=== PATIENT | female | born 1945 | race Caucasian/White ===

== ENCOUNTER → 2017-01-14 | Outpatient (CLI) | payer OTHER, MEDICAID ==
[~2017-01-14] MED LIST: BACLOFEN10 MG PO; BACTRIM DS 8001 TA1 PO; CEPHALEXIN500 M1 PO; CIPRO500 MG PO; CIPROFLOXACIN500 MG PO; FEOSOL65 MG PO; FOSAMAX5 MG PO; FOSAMAX70 MG PO; HYDROCODONE BIT1 T11 PO; K-LEASE10 MEQ PO; KEFLEX500 MG PO; LASIX20 MG PO; LASIX40 MG PO; MIRALAX17 GM/PACK PO; MULTIPLE VITAMI1 TAB PO; Nystatin Ointme30 GM PO; OSTEO-BI-FLEX 21 TAB PO; VALIUM10 MG PO; VALIUM5 MG PO; VICODIN 5/500 505 MG PO; VITAMIN D-32000 UNI1 PO; Vicodin 5/500 505 MG PO
== END | disposition home or self-care (01) ==
LOC: CARD 13:57
DX: R01.1 Cardiac murmur, unspecified (principal)

== ENCOUNTER 2017-02-08 19:29 | Inpatient (IN) | payer OTHER, MEDICAID ==
[~2017-02-08] VITALS: Ht 162.5 cm; Wt 96.4 kg
--- NOTE | ~2017-02-08 | CON ---
[place], [place] REPORT OF CONSULTATION [id number] UNIT #: [id number] ROOM: 512 DOCTOR: HAYLEE RYDER MD BIRTHDATE: [birth year] DOS: 02/10/2017 HISTORY OF PRESENT ILLNESS: A 71-year-old patient who has presented with multiple medical problems, among which has been epigastric distress, which is practically worsening over the past few days, darkish stool, anemia, drop in H and H, thrombocytopenia. PAST MEDICAL HISTORY: Aortic stenosis, obesity, ambulation difficulties, hemorrhagic cystitis. PAST SURGICAL HISTORY: Hysterectomy, ventral hernia repair. SOCIAL HISTORY: Nonsmoker, nonalcohol consumer. FAMILY HISTORY: Noncontributory. ALLERGIES: No known medication allergies. MEDICATIONS: Medication list has been reviewed. She has been on ibuprofen 800 mg t.i.d., baclofen 10 mg t.i.d. REVIEW OF SYSTEMS: HEENT: Denies double vision, blurred vision. RESPIRATORY: Denies acute shortness of breath. CARDIOVASCULAR: Denies acute chest pain. DIGESTIVE SYSTEM: Black tarry stool, anemia. No hematemesis, no hematochezia. PHYSICAL EXAMINATION: VITAL SIGNS: Stable. HEENT: Head normocephalic, nontraumatic. Mouth and buccal mucosa benign. NECK: Supple, no thyromegaly, no cervical lymphadenopathy. CHEST: Symmetric anatomy, equal expansion. No wheeze, no rhonchi. HEART: Normal sinus rhythm, no gallop; however, soft systolic murmur at the sternal border. ABDOMEN: Soft. No hepato-organomegaly. Obese, bowel sounds present. EXTREMITIES: No cyanosis, no pedal edema. NEUROLOGIC: Alert, oriented to time, place and person. DATA: Labs reviewed. Records reviewed. Initial H and H of 8 and 26 with platelets of [address] scan of the abdomen and pelvis, mild acute focal pancreatitis has been reported. GFR normal. Lipase normal, amylase normal. CBC differential, H and H dropped to 7 and 23. Troponin normal. Urine culture, 50,000 bacteria. Comprehensive metabolic panel, electrolytes balanced status post normal saline challenge with elevation of sodium and chloride. Liver function tests normal. Lipase again normal. DIAGNOSES: Anemia, borderline thrombocytopenia, patient on ibuprofen by history. OTHER ADJUNCTIVE DIAGNOSES: We are going to investigate black tarry stool in [place], [place] REPORT OF CONSULTATION NAME: IRENE CARD UNIT #: [id number] ROOM: 512 DOCTOR: ALEKSEY SOLORIO,HAYLEE BIRTHDATE: [birth year] view of ibuprofen and drop in hemoglobin and hematocrit and need of transfusion all has been recognized. PLAN AND DISCUSSION: Endoscopic assessment of upper and lower tract. Latest H and H 8 and 29. Workup in progress. Thank you very much indeed for your kind referral. HAYLEE RYDER MD CM:CONSTR:REPORT OF CONSULTATION 184 02/11/17 0036 interface
--- NOTE | ~2017-02-08 | O ---
[place], [place] OPERATIVE NOTE NAME: IRENE CARD [facility] #: [id number] UNIT #: [id number] ROOM: 512 DO[facility] BIRTH[facility] [birth year] DOS: GASTRO-ENDOSCOPIC REPORT REPORT #1 HISTORY OF PRESENT ILLNESS: This is a 71-year-old patient who has presented with anemia, undergoing investigation, GI bleed, black tarry stools. PROCEDURE: Today's procedure part of investigation is colonoscopy and panendoscopy. PREMEDICATION: Versed and Diprivan. SCOPE: Olympus forward-viewing colonoscope 10L video. REPORT: After putting the patient in the left lateral position and after application of lubricant to the scope, the scope was introduced. Thereafter, under direct visualization, I advanced through the length of colon without difficulty. Base of the cecum explored, appendiceal orifice identified, ileocecal valve was defined. Diverticulosis in moderate degree throughout the length of colon was noticed. Small hemorrhoids were seen. The patient was gradually extubated. No active source of bleeding in colon noticed, however, residual blood in the colon was of concern. The patient extubated, tolerated procedure well. We are going to proceed with panendoscopy. REPORT #2 PROCEDURE: Today's procedure part of investigation is panendoscopy plus biopsy. PREMEDICATION: Versed and Diprivan. SCOPE: Olympus forward-viewing gastroscope Q10 video. REPORT: After putting the patient in the left lateral position and after application of lubricant to the scope, the scope was introduced. Thereafter, under direct visualization, I advanced through the length of esophagus without difficulty. Gastric pouch was entered. Multiple small antral erosions seen. Duodenal bulb was entered. Multiple large duodenal ulcers in duodenal bulb and second part approached. Margin of one was biopsied. Scope was gradually withdrawn from gastric pouch and the patient extubated, tolerated the procedure well. IMPRESSION: Multiple duodenal ulcers, large multiple small antral erosions. This is all secondary to ibuprofen intake. PLAN AND DISCUSSION: We will hold ibuprofen therapy, increasing Protonix 40 mg IV b.i.d. We are going to while she is an inpatient sucralfate 2 grams a.c. meals and at bedtime. Source of bleeding is upper GI tract as identified above. Supportive management otherwise. Routinely with you in office, p.r.n. visit [place], [place] OPERATIVE NOTE NAME: IRENE CARD UNIT #: [id number] ROOM: 512 DOCTOR: ALEKSEY SOLORIO,HAYLEE BIRTHDATE: [birth year] with us in GI Clinic. Thank you very much indeed. HAYLEE RYDER MD CM:OPRECORD:OPERATIVE NOTE 06 16 HAYLEE RYDER MD 02/10/172115 interface
[2017-02-08 19:40] VITALS: BP 117/63
[2017-02-08 20:24] LABS: BILIRUBIN NEGATIVE (NEGATIVE); BLOOD 2+ (NEGATIVE); CLARITY SL CLOUDY (CLEAR); COLOR YELLOW (YELLOW); GLUCOSE NEGATIVE (NEGATIVE); KETONE NEGATIVE (NEGATIVE); LEUKO ESTERASE 1+ (NEGATIVE); NITRITE NEGATIVE (NEGATIVE); UROBILINOGEN 0.2 E.U./dl (0.2-1.0)
[2017-02-08 20:28] LABS: BASO % 0.4 % (0.0-1.0); EOS # 0.2 10*3/uL (0.0-0.4); EOS % 1.9 % (1.0-4.0); HEMATOCRIT 26.6 % (37.0-47.0); HEMOGLOBIN 8.9 g/dl (12.0-16.0); LYMPH # 1.6 10*3/uL (1.3-4.4); LYMPH % 17.7 % (27.0-41.0); MEAN CELL VOLUME 96.4 fl (81.0-99.0); MEAN CORPUSCULAR HGB 32.2 pg (27.0-31.0); MEAN CORPUSCULAR HGB CONC 33.5 g/dl (33.0-37.0); MONO # 0.6 10*3/uL (0.1-1.0); MONO % 6.9 % (3.0-9.0); NEUT # 6.7 10*3/uL (2.3-7.9); NEUT % 72.6 % (47.0-73.0); PLATELET COUNT AUTOMATED 185 10*3/uL (130-400); RED BLOOD COUNT 2.76 10*6/uL (4.10-5.10); RED CELL DISTRI WIDTH 15.8 % (0-14.5); WHITE BLOOD COUNT 9.3 10*3/uL (4.8-10.8)
[2017-02-08 20:34] LABS: BACTERIA 3+; EPITHELIAL CELLS 0-2; WBC 31-40 wbc/hpf (0-5)
[2017-02-08 20:43] LABS: ALKALINE PHOSPHATASE 66 U/L (45-117); BUN 28 mg/dl (7-24); CHLORIDE 109 mmol/L (98-107); CREATININE 0.69 mg/dL (0.55-1.02); LIPASE 145 U/L (73-393); SGOT/AST 25 IU/L (3-35); SGPT/ALT 27 U/L (12-78); SODIUM 143 mmol/L (136-145); TOTAL PROTEIN 6.4 gm/dL (6.4-8.2)
[2017-02-08 20:47] VITALS: BP 108/60
[2017-02-08 21:25] VITALS: BP 124/64
--- NOTE | 2017-02-08 22:11 | NUR ---
PATIENT RATES PAIN AT 4/10 PAIN WAS 9/10 BEFORE PAIN MEDS
[2017-02-08 22:12] VITALS: BP 119/60
--- NOTE | 2017-02-08 22:22 | NUR ---
PATIENT IN GOWN TO BE ADMITTED, PATIENT WITH OPEN WOUND RIGHT BUTTOCK APROX 1.5CM X 1.5CM ROUND IN SHAPE, AREA OF BUTTOCK RED, PATIENT STATES " I'VE HAD THIS BED SORE FOR AWHILE"
--- NOTE | 2017-02-08 22:34 | NUR ---
REPORT FROM CASING FLUID TENDERDELORES HOOD
--- NOTE | 2017-02-08 22:58 | NUR ---
A 71, admitted to , under the services of DAWSON Albert DO with a diagnosis of GI BLEED. Chief complaint is ABD PAIN. Patient arrived via stretcher from ER. Monitor applied. Initial assessment completed. Vital signs taken and recorded. DAWSON ALBERT DO notified of admission to the unit. Orders received. See assessment for past medical history, medications and allergies. Patient and/or family oriented to unit. [facility] visitation policy reviewed. Clothing/patient valuable form completed. JAMEL LOWE
[2017-02-08] MEDS ORDERED: LASIX20 MG PO (23:03)
[2017-02-08] MEDS ORDERED: Motrin,Rufen800 MG PO (23:06)
--- NOTE | 2017-02-08 23:09 | NUR ---
MEDICATION LIST REVIEWED WITH PATIENT AND LIST FROM HOME. COPIED AND ON THE CHART.
[2017-02-08 23:30] VITALS: BP 115/62
[2017-02-08 23:35] VITALS: BP 115/62
[2017-02-09] VITALS (12 sets, daily range): BP systolic 92–115; BP diastolic 47–60
--- NOTE | 2017-02-09 00:02 | NUR ---
DR NORTH AWARE OF STAGE 2 PRESSURE ULCER. NO ORDERS AT THIS TIME
[2017-02-09 00:25] LABS: BASO % 0.3 % (0.0-1.0); EOS # 0.3 10*3/uL (0.0-0.4); EOS % 2.9 % (1.0-4.0); HEMATOCRIT 23.1 % (37.0-47.0); HEMOGLOBIN 7.8 g/dl (12.0-16.0); LYMPH # 1.7 10*3/uL (1.3-4.4); LYMPH % 19.1 % (27.0-41.0); MEAN CELL VOLUME 95.5 fl (81.0-99.0); MEAN CORPUSCULAR HGB 32.2 pg (27.0-31.0); MEAN CORPUSCULAR HGB CONC 33.8 g/dl (33.0-37.0); MEAN PLATELET VOLUME 8.9 fl (9.6-12.3); MONO # 0.7 10*3/uL (0.1-1.0); MONO % 7.5 % (3.0-9.0); NEUT % 69.5 % (47.0-73.0); PLATELET COUNT AUTOMATED 160 10*3/uL (130-400); RED BLOOD COUNT 2.42 10*6/uL (4.10-5.10); RED CELL DISTRI WIDTH 15.9 % (0-14.5); WHITE BLOOD COUNT 8.6 10*3/uL (4.8-10.8)
--- NOTE | 2017-02-09 00:54 | NUR ---
PATIENT MEDICATED WITH PRN MORPHINE FOR C/O ABD PAIN RATED AT 5/10 ON A 0/10 PAIN SCALE. WILL MONITOR
--- NOTE | 2017-02-09 01:08 | NUR ---
DR NORTH AWARE OF PATIENT'S HGB DROPPED TO 7.8 FROM 8.9. STATES WILL PUT AN ORDER IN TO TRASFUSE ONE UNIT OF BLOOD
--- NOTE | 2017-02-09 01:27 | NUR ---
PATIENT OXYGEN 90% ON ROOM AIR. PLACED ON 1L NC AND OXYGEN UP TO 95%. DENIES SHORTNESS OF BREATH.
--- NOTE | 2017-02-09 01:45 | NUR ---
Informed consent obtained from patient for Blood transfussion by . Patient identified by arm band. Vital signs recorded. Blood unit number verified by 2 R.N.'s. I.V. site satisfactory. Unit 1 started at a KVO rate with Normal Saline. JAMEL LOWE
--- NOTE | 2017-02-09 05:41 | NUR ---
PATIENT RESTING IN BED WITH EYES CLOSED. RESPS EASY AND REGULAR. BED IN LOWEST POSITION, CALL LIGHT IN REACH
[2017-02-09 06:18] LABS: BASO % 0.6 % (0.0-1.0); EOS # 0.3 10*3/uL (0.0-0.4); EOS % 4.6 % (1.0-4.0); HEMATOCRIT 23.7 % (37.0-47.0); LYMPH # 1.8 10*3/uL (1.3-4.4); LYMPH % 25.3 % (27.0-41.0); MEAN CELL VOLUME 96.7 fl (81.0-99.0); MEAN CORPUSCULAR HGB 32.7 pg (27.0-31.0); MEAN CORPUSCULAR HGB CONC 33.8 g/dl (33.0-37.0); MEAN PLATELET VOLUME 9.3 fl (9.6-12.3); MONO # 0.5 10*3/uL (0.1-1.0); MONO % 7.2 % (3.0-9.0); NEUT # 4.4 10*3/uL (2.3-7.9); NEUT % 61.6 % (47.0-73.0); NUCLEATED RED BLOOD CELL 0.3 % (0.0-0.0); PLATELET COUNT AUTOMATED 141 10*3/uL (130-400); RED BLOOD COUNT 2.45 10*6/uL (4.10-5.10); RED CELL DISTRI WIDTH 15.7 % (0-14.5); WHITE BLOOD COUNT 7.1 10*3/uL (4.8-10.8)
--- NOTE | 2017-02-09 06:23 | NUR ---
ATTEMPTED TO CALL DR RYDER FOR CONSULT. WENT STRAIGHT TO VOICEMAIL. WILL LET DAYTLEROY NURSE KNOW.
[2017-02-09 06:43] LABS: ALBUMIN 2.3 gm/dl (3.1-4.5); BUN 22 mg/dl (7-24); CHLORIDE 114 mmol/L (98-107); CREATININE 0.61 mg/dL (0.55-1.02); HDL CHOLESTEROL 27 mg/dl (40-60); POTASSIUM 3.7 mmol/L (3.5-5.1); SGOT/AST 20 IU/L (3-35); SGPT/ALT 22 U/L (12-78); SODIUM 146 mmol/L (136-145); TRIGLYCERIDES 75 mg/dl (<150); VLDL CHOLESTEROL 15 mg/dL (6-40)
[2017-02-09 06:49] LABS: ACT PARTIAL THROMBO TIME 23.1 SECONDS (20.8-31.5); INTERNATIONAL NORM RATIO 1.1 (2.0-3.5)
[2017-02-09 06:52] LABS: ALKALINE PHOSPHATASE 49 U/L (45-117); FREE T4 1.26 ng/dl (0.76-1.46); PHOSPHOROUS 2.6 mg/dL (2.5-4.9); TOTAL PROTEIN 5.2 gm/dL (6.4-8.2)
[2017-02-09 07:09] LABS: CHOLESTEROL < 50 mg/dL (<200); LDL CHOLESTEROL 8 mg/dL (9-159)
--- NOTE | 2017-02-09 08:26 | NUR ---
CONSULT CALLED TO DR. RYDER, ORDER TO MAKE SURE H/H IS DRAWN TOMORROW AND TO CALL HIM WITH RESULTS.
--- NOTE | 2017-02-09 10:50 | NUR ---
Shift chart check completed.
--- NOTE | 2017-02-09 13:27 | NUR ---
STAGE 2 ON BUTTOCKS DRESSING COMPLETED. KAYKAY LOWERY. PT GIVEN B12 INJECION LEFT DELTOID. PT WITHOUT NEEDS AT THIS TIME. WILL CONTINUE TO MONITOR
[2017-02-10] VITALS (9 sets, daily range): BP systolic 96–127; BP diastolic 46–72
--- NOTE | 2017-02-10 03:15 | NUR ---
PT RESTING IN BED WITH EYES CLOSED RESPS EASY AND NONLABORED WITH NO S/S OF DISRESS CALL LIGHT WITH IN REACH
[2017-02-10 06:28] LABS: BASO % 0.7 % (0.0-1.0); EOS # 0.3 10*3/uL (0.0-0.4); EOS % 5.7 % (1.0-4.0); HEMATOCRIT 24.4 % (37.0-47.0); LYMPH # 1.4 10*3/uL (1.3-4.4); LYMPH % 24.4 % (27.0-41.0); MEAN CELL VOLUME 99.2 fl (81.0-99.0); MEAN CORPUSCULAR HGB 32.5 pg (27.0-31.0); MEAN CORPUSCULAR HGB CONC 32.8 g/dl (33.0-37.0); MEAN PLATELET VOLUME 8.9 fl (9.6-12.3); MONO # 0.4 10*3/uL (0.1-1.0); MONO % 7.7 % (3.0-9.0); NEUT # 3.4 10*3/uL (2.3-7.9); NEUT % 60.6 % (47.0-73.0); PLATELET COUNT AUTOMATED 127 10*3/uL (130-400); RED BLOOD COUNT 2.46 10*6/uL (4.10-5.10); RED CELL DISTRI WIDTH 16.4 % (0-14.5); WHITE BLOOD COUNT 5.6 10*3/uL (4.8-10.8)
[2017-02-10 06:56] LABS: ALBUMIN 2.5 gm/dl (3.1-4.5); ALKALINE PHOSPHATASE 49 U/L (45-117); BUN 14 mg/dl (7-24); CHLORIDE 117 mmol/L (98-107); CREATININE 0.67 mg/dL (0.55-1.02); LIPASE 330 U/L (73-393); POTASSIUM 3.6 mmol/L (3.5-5.1); SGOT/AST 27 IU/L (3-35); SGPT/ALT 20 U/L (12-78); SODIUM 147 mmol/L (136-145); TOTAL PROTEIN 5.5 gm/dL (6.4-8.2)
--- NOTE | 2017-02-10 09:00 | NUR ---
Safety And Health Consultant in to talk to patient. Patient states lives at home with friend. There are few steps in the home. Physician: haroldo hurley [facility]acy: [facility] Home health services: none Patient's level of ADLs: MINIMAL ASSIST Patient has working utilities: all working DME: walker Follow-up physician's appointment after d/c: will be made by hosptalist nurse director upon discharge Does patient want to access PORTAL?: no Discharge plan discussed with patient, patient lives at home with friend, she states she uses a walker for ambulation, also has a wheelchair, patient states she also drives, she will be going back home when able and denies any home needs. PHANI ALDANA
--- NOTE | 2017-02-10 11:23 | NUR ---
IRENE CARD [id number] Please refer to the physician's history and physical for past medical history, comorbid conditions, and allergies. Diagnosis: GI BLEED, ANEMIA, PANCREATITIS, DUODENITIS Jose Score: 12,HIGH RISK WOUND DESCRIPTIONS: Location of the wound: left buttocks Type of wound: stage 2 Thickness: Partial Size: 0.4cm x 0.5cm x 0.1cm Tunneling: none Undermining: none Sinus Tract: none Presence of Exudate: Serous Amount: Light Color: Red Odor: None Periwound Skin Appearance: Normal Wound edges: approximated Pain (associated with wound): none at time of assessment How does patient state this happened? pt unsure how this occured Surface the patient is resting on: Position Pro SKIN PREVENTION RECOMMENDATION: 1. Pressure redistribution support surface as appropriate 2. Elevate heels 3. Remove boots/TEDS every shift and reapply 4. Head of bed 30 degrees as tolerated 5. Assess nutrition and hydration 6. Manage moisture 7. Avoid the use of containment devices while in bed 8. Use absorptive products on surfaces limit layers of linens on bed 9. Turn and reposition every 1-2 hours in bed and every 1 hour in chair as tolerated 10. Weight shifts every 15 minutes while up in chair 11. Offloading with pillows or device to keep heels elevated off bed 12. Monitor skin at least every shift 13. Inspect under medical devices twice a day WOUND TREATMENT RECOMMENDATIONS: Continue current wound care orders. Wheelchair cushion to chair when OBB.
--- NOTE | 2017-02-10 12:38 | NUR ---
Spoke with Dr. Ackerman regarding wound care recommendations.
--- NOTE | 2017-02-10 17:24 | NUR ---
PROTONIX IV HELD WHILE PATIENT GOES FOR EGD/COLO. WILL ADMINISTER UPON RETURN.
--- NOTE | 2017-02-10 17:30 | NUR ---
PT DOWN TO SURGERY FOR EGD/COLO.
--- NOTE | 2017-02-10 19:17 | NUR ---
DR RYDER CALL WITH TELEPHONE ORDERS POST EGD/COLO.
--- NOTE | 2017-02-10 19:45 | NUR ---
ASSUMED CARE OF PT AT THIS TIME, RESPS EASY AND NONLABORED WITH NO S/S OF DISTRESS CALL LIGHT WITH IN REACH, PT RETURNED FROM SURGERY IN STABLE CONDITION AT THIS TIME
--- NOTE | 2017-02-10 21:10 | NUR ---
PT REQUESTED SOMETHING TO ASSIST WITH SLEEP. REQUESTED AND ADMINSITERED PO PRN RESTORIL PER ORDERS, WILL MONITOR EFFECTS
[2017-02-11] VITALS (11 sets, daily range): BP systolic 104–132; BP diastolic 40–61
[2017-02-11 06:21] LABS: BASO % 0.7 % (0.0-1.0); EOS # 0.3 10*3/uL (0.0-0.4); EOS % 6.7 % (1.0-4.0); HEMATOCRIT 22.8 % (37.0-47.0); HEMOGLOBIN 7.4 g/dl (12.0-16.0); LYMPH # 1.2 10*3/uL (1.3-4.4); LYMPH % 25.9 % (27.0-41.0); MEAN CELL VOLUME 98.3 fl (81.0-99.0); MEAN CORPUSCULAR HGB 31.9 pg (27.0-31.0); MEAN CORPUSCULAR HGB CONC 32.5 g/dl (33.0-37.0); MEAN PLATELET VOLUME 9.1 fl (9.6-12.3); MONO # 0.3 10*3/uL (0.1-1.0); MONO % 6.9 % (3.0-9.0); NEUT # 2.7 10*3/uL (2.3-7.9); NEUT % 59.4 % (47.0-73.0); PLATELET COUNT AUTOMATED 122 10*3/uL (130-400); RED BLOOD COUNT 2.32 10*6/uL (4.10-5.10); RED CELL DISTRI WIDTH 16.5 % (0-14.5); WHITE BLOOD COUNT 4.5 10*3/uL (4.8-10.8)
--- NOTE | 2017-02-11 06:31 | NUR ---
NOTIFITED OF HGB OF 7.4, NO NEW ORDERS AT THIS TIME
--- NOTE | 2017-02-11 06:45 | NUR ---
CALL PLACED TO DR. IVEY, NOTIFIED OF URINE IN BLADDER >[address] IVEY THAT PT HAS BEEN UP AND DOWN ALL NIGHT ATTEMPTING TO VOID WITH MINIMAL OUTPUT.
[2017-02-11 06:48] LABS: ALBUMIN 2.4 gm/dl (3.1-4.5); BUN 7 mg/dl (7-24); CHLORIDE 115 mmol/L (98-107); CREATININE 0.56 mg/dL (0.55-1.02); POTASSIUM 3.1 mmol/L (3.5-5.1); SGOT/AST 27 IU/L (3-35); SGPT/ALT 20 U/L (12-78); SODIUM 146 mmol/L (136-145); TOTAL PROTEIN 5.1 gm/dL (6.4-8.2)
[2017-02-11 06:49] LABS: ALKALINE PHOSPHATASE 46 U/L (45-117)
--- NOTE | 2017-02-11 09:00 | NUR ---
case management visits with patient, patient denies any home needs
--- NOTE | 2017-02-11 19:51 | NUR ---
NOTIFIED THAT PTS TEMP WAS 100.4 AND WHEN RECHECKED 99.7, STATES TO GIVE PT TYLENOL
--- NOTE | 2017-02-11 20:00 | NUR ---
ADMISNTERED TYLENOL 650MG PO PRN PER ORDERS R/T INCREASED TEMP
--- NOTE | 2017-02-11 23:50 | NUR ---
PT RESQUESTING SLEEPING MEDICATION, ADMISNTERED RESTORIL PO PRN PER ORDERS WILL MONITOR EFFFECTS
[2017-02-12] VITALS: BP 131/56
--- NOTE | 2017-02-12 01:21 | NUR ---
PT RESTING IN BED WITH EYES CLOSED RESPS EASY AND NONLABORED WITH NO S/S OF DISTRSS CALL LIGHT WITH IN REACH
--- NOTE | 2017-02-12 04:00 | NUR ---
PT RESTING IN BED WITH EYES CLOSED RESPS EASY AND NONLABORED WITH NO S/S OF DISTRESS CALL LIGHT WITH IN REACH
[2017-02-12 06:21] LABS: BASO % 0.6 % (0.0-1.0); EOS # 0.3 10*3/uL (0.0-0.4); EOS % 7.2 % (1.0-4.0); HEMATOCRIT 25.7 % (37.0-47.0); HEMOGLOBIN 8.6 g/dl (12.0-16.0); LYMPH # 1.2 10*3/uL (1.3-4.4); LYMPH % 25.4 % (27.0-41.0); MEAN CELL VOLUME 96.3 fl (81.0-99.0); MEAN CORPUSCULAR HGB 32.2 pg (27.0-31.0); MEAN CORPUSCULAR HGB CONC 33.5 g/dl (33.0-37.0); MEAN PLATELET VOLUME 9.4 fl (9.6-12.3); MONO # 0.4 10*3/uL (0.1-1.0); MONO % 7.7 % (3.0-9.0); NEUT # 2.7 10*3/uL (2.3-7.9); PLATELET COUNT AUTOMATED 120 10*3/uL (130-400); RED BLOOD COUNT 2.67 10*6/uL (4.10-5.10); RED CELL DISTRI WIDTH 16.2 % (0-14.5); WHITE BLOOD COUNT 4.7 10*3/uL (4.8-10.8)
[2017-02-12 06:53] LABS: ALBUMIN 2.3 gm/dl (3.1-4.5); ALKALINE PHOSPHATASE 73 U/L (45-117); BUN 9 mg/dl (7-24); CHLORIDE 113 mmol/L (98-107); CREATININE 0.57 mg/dL (0.55-1.02); POTASSIUM 3.6 mmol/L (3.5-5.1); SGOT/AST 25 IU/L (3-35); SGPT/ALT 23 U/L (12-78); SODIUM 143 mmol/L (136-145); TOTAL PROTEIN 5.4 gm/dL (6.4-8.2)
[2017-02-12 08:00] VITALS: BP 126/64
[2017-02-12 12:00] VITALS: BP 120/76
[2017-02-12] MEDS ORDERED: B12,B-12,B 12500 MC1 PO (14:15)
[2017-02-12] MEDS ORDERED: Carafate1 GM/10 ML PO (14:15)
[2017-02-12] MEDS ORDERED: PROTONIX40 MG PO (14:15)
[2017-02-12 16:00] VITALS: BP 132/72
--- NOTE | 2017-02-12 17:43 | NUR ---
Discharge instructions reviewed with patient/family. Patient receptive and verbalizes understanding. Follow-up care arranged. Written instructions given to patient/family. JACQUELYN EAST
== END 2017-02-12 17:43 | disposition home or self-care (01) | DRG 377 ==
LOC: ED 19:29 → EDHOLD 22:21 → 5E 22:21
PROVIDERS: Hospitalist; Internal Medicine; Internal Medicine Gastroenterology; Nurse Practitioner Family; ADMIT Internal Medicine
PROC: 30233N1 Transfusion of Nonautologous Red Blood Cells into Peripheral Vein, Percutaneous Approach (ICD-10-PCS; 2017-02-09)
PROC: 0DB98ZX Excision of Duodenum, Via Natural or Artificial Opening Endoscopic, Diagnostic (ICD-10-PCS; principal; 2017-02-10)
PROC: 0DJD8ZZ Inspection of Lower Intestinal Tract, Via Natural or Artificial Opening Endoscopic (ICD-10-PCS; principal; 2017-02-10)
DX: K29.81 Duodenitis with bleeding (principal); K85.90 Acute pancreatitis without necrosis or infection, unspecified; E43 Unspecified severe protein-calorie malnutrition; E87.0 Hyperosmolality and hypernatremia; N39.0 Urinary tract infection, site not specified; K74.60 Unspecified cirrhosis of liver; E87.8 Other disorders of electrolyte and fluid balance, not elsewhere classified; D62 Acute posthemorrhagic anemia; I35.0 Nonrheumatic aortic (valve) stenosis; R31.9 Hematuria, unspecified; E53.8 Deficiency of other specified B group vitamins; E66.09 Other obesity due to excess calories; K25.4 Chronic or unspecified gastric ulcer with hemorrhage; K57.30 Diverticulosis of large intestine without perforation or abscess without bleeding; K26.4 Chronic or unspecified duodenal ulcer with hemorrhage; K64.9 Unspecified hemorrhoids; Z90.710 Acquired absence of both cervix and uterus; Z79.899 Other long term (current) drug therapy; Z79.1 Long term (current) use of non-steroidal anti-inflammatories (NSAID); Z68.36 Body mass index [BMI] 36.0-36.9, adult

== ENCOUNTER 2017-06-09 17:30 | Emergency (ER) | payer OTHER, MEDICAID ==
[~2017-06-09] VITALS: Ht 162.5 cm; Wt 98.0 kg
[~2017-06-09 17:30] MED LIST changes: +B12,B-12,B 12500 MC1 PO; +Carafate1 GM/10 ML PO; +Motrin,Rufen800 MG PO; +PROTONIX40 MG PO
== END 2017-06-09 18:52 | disposition home or self-care (01) ==
LOC: ED 17:30
DX: Z04.1 Encounter for examination and observation following transport accident (principal); Z79.899 Other long term (current) drug therapy; V43.52XA Car driver injured in collision with other type car in traffic accident, initial encounter; Y93.89 Activity, other specified; Y92.413 State road as the place of occurrence of the external cause; Y99.8 Other external cause status

== ENCOUNTER 2017-06-18 17:11 | Emergency (ER) | payer OTHER, MEDICAID ==
[~2017-06-18] VITALS: Ht 162.5 cm; Wt 98.0 kg
[2017-06-18] MEDS ORDERED: ZOFRAN ODT4 MG SL (19:31)
== END 2017-06-18 19:34 | disposition home or self-care (01) ==
LOC: ED 17:11
DX: S40.012A Contusion of left shoulder, initial encounter (principal); S30.1XXA Contusion of abdominal wall, initial encounter; F07.81 Postconcussional syndrome; Z90.710 Acquired absence of both cervix and uterus; Z98.890 Other specified postprocedural states; Z79.899 Other long term (current) drug therapy; V49.88XA Car occupant (driver) (passenger) injured in other specified transport accidents, initial encounter; Y93.89 Activity, other specified; Y92.413 State road as the place of occurrence of the external cause; Y99.9 Unspecified external cause status

== ENCOUNTER → 2017-11-25 | Outpatient (CLI) | payer OTHER, MEDICAID ==
[~2017-11-25] MED LIST changes: +ZOFRAN ODT4 MG SL
== END | disposition home or self-care (01) ==
LOC: MAMMO 02:49
DX: Z12.31 Encounter for screening mammogram for malignant neoplasm of breast (principal)

== ENCOUNTER → 2018-11-25 | Outpatient (CLI) | payer OTHER, MEDICAID ==
[~2018-11-25] MED LIST changes: +CARAFATE1 G1 PO; +PANTOPRAZOLE SO40 MG PO; +POTASSIUM CHLO10 MEQ PO; +SEPTDS PO; +VITAMIN B121000 MC1 PO
[2018-11-26 17:06] LABS: BILIRUBIN NEGATIVE (NEGATIVE); BLOOD 3+ (NEGATIVE); CLARITY CLOUDY (CLEAR); COLOR BROWN (YELLOW); GLUCOSE NEGATIVE (NEGATIVE); KETONE NEGATIVE (NEGATIVE); LEUKO ESTERASE 2+ (NEGATIVE); NITRITE NEGATIVE (NEGATIVE); PH 6.5 (5.0-9.0); SPECIFIC GRAVITY 1.015 (1.005-1.030); UROBILINOGEN 0.2 E.U./dl (0.2-1.0)
[2018-11-26 17:12] LABS: BACTERIA 1+; MUCOUS 1+; RBC TNTC rbc/hpf (0-2); WBC TNTC wbc/hpf (0-5)
== END | disposition home or self-care (01) ==
LOC: LAB 00:01
PROVIDERS: Urology
DX: N39.0 Urinary tract infection, site not specified (principal)

== ENCOUNTER 2019-03-01 14:50 | Inpatient (IN) | payer OTHER, MEDICAID ==
[~2019-03-01] VITALS: Ht 160 cm; Wt 106.3 kg
[2019-03-01] VITALS (9 sets, daily range): BP systolic 94–124; BP diastolic 41–64
--- NOTE | ~2019-03-01 | EKG ---
[place], [place] ELECTROCARDIOGRAM REPORT NAME: IRENE CARD UNIT #: [id number] ROOM: 528 DOCTOR: NAFISA DRAFT REPORT BIRTHDATE: [address] [facility] Test Date: 2019-03-01 Test Time: 16:30:35 Pat Name: IRENE CARD Department: Room: 528 Gender: F Supervisor Stone: : [phone] Requested By: BONITA RECIO Order Number: [id number] Reading MD: Barbara Stover Measurements Intervals [address] Rate: 97 P: 19 ME: 152 QRS: 19 QRSD: 87 T: 17 QT: 325 QTc: 413 Interpretive Statements Sinus rhythm Compared to ECG 12/21/2017 12:45:26 No significant changes Electronically Signed On 03-03-2019 9:29:03 PST by Barbaar Stover CM:EKGRPT:ELECTROCARDIOGRAM REPORT 1630 0929 BONITA RECIO EPIPHANY DRAFT REPORT BONITA RECOI
--- NOTE | ~2019-03-01 | POSTOPNOTE ---
[place], [place] POSTOPERATIVE PROGRESS NOTE NAME: IRENE CARD UNIT #: [id number] ROOM: 528 DOCTOR: HAYLEE RYDER MD BIRTHDATE: [birth year] DATE: 03/05/19 GI NOTE PREOPERATIVE DIAGNOSIS: GI BLEED, HISTORY OF DIARRHEA POSTOP LOWER GI PROC/FINDINGS: LOWER GI PROCEDURE/SURGERY: PLUS BIOPSY, COLONOSCOPY, I&D OF THROMBOSED HEMORRHOID LOWER GI FINDINGS: NONSPECIFIC COLITIS, STATUS POST BIOPSY, I&D OF THROMBOSED HEMORRHOID RECTUM X 2, DIVERTICULOSIS COLI HAYLEE RYDER MD CM:POSTOPN 14 14 HAYLEE RYDER MD 03/08/19 1518 FABIEN LOGAN.LEONARDOR
--- NOTE | ~2019-03-01 | O ---
[place], [place] OPERATIVE NOTE [facility] #[facility] [id number] UNIT #: [id number] ROOM: 528 DOCTOR: HAYLEE RYDER MD BIRTHDATE: [birth year] DOS: 03/03/2019 GASTROENDOSCOPIC REPORT INDICATION: The patient has presented 73-year-old with profound anemia, status post transfusion, diarrhea, epigastric distress. The patient's medication at the time of admission has been reviewed and no anticoagulants on board; however, she has been on baclofen and ibuprofen that was made us concerned about i.e. peptic ulcer disease and blood loss. PROCEDURE: Today's procedure part of investigation is panendoscopy. PREMEDICATION: Propofol. SCOPE: Olympus forward-viewing gastroscope Q10 video. REPORT: After putting the patient in left lateral position and application of lubricant to the scope, the scope was introduced. Thereafter, under direct visualization, advanced through the length of esophagus without difficulty. Small hiatal hernia was noticed. Gastric pouch was entered. Gastritis seen. Duodenal bulb, second and third part within normal limits. The patient extubated and tolerated the procedure well. IMPRESSION: Mild gastritis, hiatal hernia. PLAN AND DISCUSSION: Protonix 40 mg daily. We are going to organize a colonoscopic evaluation on Friday. She is going to be on regular diet tonight. Clear liquids from tomorrow and preparation, MiraLax colonic prep tomorrow to start at noon for colonoscopy on Friday. Thank you very much indeed. HAYLEE RYDER MD CM:OPRECORD:OPERATIVE NOTE 1646 2253 HAYLEE RYDER MD 03/03/19 2252 interface
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
--- NOTE | ~2019-03-01 | O ---
[place], [place] OPERATIVE NOTE [id number] UN[facility] #: [id number] ROOM: 528 DOCTOR: ALEKSEY SOLORIO,HAYLEE BIRTHDATE: [birth year] DOS: 03/05/2019 HISTORY OF PRESENT ILLNESS: A 73-year-old patient who presented with chief complaint of GI bleed, undergoing investigation, history of diarrhea. Today's procedure part of investigation is colonoscopy plus biopsy, I and D of the thrombosed hemorrhoid. PREMEDICATION: Propofol. SCOPE: Olympus forward-viewing colonoscope 10L video. REPORT: After putting the patient in left lateral position and application of lubricant to the scope, the scope was introduced. Thereafter, under direct visualization, advanced through the length of colon without difficulty. Base of the cecum explored, appendiceal site and ileocecal valve was defined nonspecific colitis, sigmoid colon noticed. Biopsy obtained. Base of cecum was photographed. Air was suctioned out. The patient was extubated, tolerated the procedure well. At this stage, the rectal pouch under sterile condition with Betadine was cleaned, injected with 2 mL of Xylocaine and hemorrhoid, I and D at two spot was done with thrombosed hemorrhoid. Clots were removed. Site was saturated with Neosporin dressed. The patient tolerated the procedure well. IMPRESSION: Nonspecific colitis, status post biopsy, I and D of thrombosed hemorrhoid rectum x 2, diverticulosis coli PLAN AND DISCUSSION: Supportive management. Regular diet. HAYLEE RYDER MD CM:OPRECORD:OPERATIVE NOTE 1121 T: HAYLEE RYDER MD 03/05/19 1219 FABIEN LOGAN MIS.R
[2019-03-01 16:17] LABS: HEMATOCRIT 23.9 % (37.0-47.0); MEAN CELL VOLUME 74.5 fl (81.0-99.0); MEAN CORPUSCULAR HGB 21.5 pg (27.0-31.0); MEAN CORPUSCULAR HGB CONC 28.9 g/dl (33.0-37.0); MEAN PLATELET VOLUME 9.7 fl (9.6-12.3); PLATELET COUNT AUTOMATED 187 10*3/uL (130-400); RED BLOOD COUNT 3.21 10*6/uL (4.10-5.10); RED CELL DISTRI WIDTH 17.8 % (0-14.5); WHITE BLOOD COUNT 4.6 10*3/uL (4.8-10.8)
[2019-03-01 16:30] LABS: HEMOGLOBIN 6.9 g/dl (12.0-16.0)
[2019-03-01 16:34] LABS: ALKALINE PHOSPHATASE 76 U/L (45-117); BUN 14 mg/dl (7-24); CHLORIDE 108 mmol/L (98-107); CREATININE 0.78 mg/dL (0.55-1.02); POTASSIUM 3.2 mmol/L (3.5-5.1); SGOT/AST 15 IU/L (3-35); SGPT/ALT 17 U/L (12-78); SODIUM 140 mmol/L (136-145); TOTAL PROTEIN 6.6 gm/dL (6.4-8.2)
[2019-03-01 16:40] LABS: ATYPICAL LYMPHS 1 % (0-0); TOTAL CELLS COUNTED 100 #CELLS
[2019-03-01 16:41] LABS: OVALOCYTES FEW; PLATELET SUFFICIENCY NORMAL (NORMAL)
--- NOTE | 2019-03-01 16:46 | NUR ---
MARY SHEPHERD AND DELORES CHONG NOTIFIED OF CRITICAL HGB OF 6.9
[2019-03-01 16:50] LABS: LIPASE 469 U/L (73-393)
[2019-03-01 16:54] LABS: TROPONIN I < 0.015 ng/ml (<0.045)
[2019-03-01 17:01] LABS: ACT PARTIAL THROMBO TIME 27.1 SECONDS (20.0-32.1)
--- NOTE | 2019-03-01 20:45 | NUR ---
Time: 2044 A 73 year old FEMALE admitted to 5E under services of TAB NAVARRO DO. Pt. arrived via stretcher from ER. Chief complaint: GI BLEED, ANEMIA, DIARRHEA, LEUKOPENIA, AND HYPOKALEMIA. GABBY ROLAND
--- NOTE | 2019-03-01 20:47 | NUR ---
PATIENT TRANSPORTED TO ROOM BY BENCH MACHINE OPERATOR. BLOOD TRANSFUSION STARTED IN ER. BLOOD TRANSFUSING AT 100 ML/HR AT TIME OF ARRIVAL TO ROOM. VITAL SIGNS TAKEN AND RECORDED. VSS. CALL LIGHT WITHIN REACH.
--- NOTE | 2019-03-01 21:00 | NUR ---
DR. ANGUIANO NOTIFIED THAT PATIENT'S MED REC IS UP TO DATE.
[2019-03-01] MEDS ORDERED: BACLOFEN5 MG PO (21:25)
[2019-03-01] MEDS ORDERED: PANTOPRAZOLE SO40 MG PO (21:29)
[2019-03-01] MEDS ORDERED: OMEPRAZOLE MAGN20 MG PO (21:30)
[2019-03-01] MEDS ORDERED: Motrin,Rufen800 MG PO (21:30)
[2019-03-01] MEDS ORDERED: LIPITOR10 MG PO (21:30)
--- NOTE | 2019-03-01 21:41 | NUR ---
NOTIFIED DR. RYDER OF NEW CONSULT. ORDERS RECEIVED TO MAKE PATIENT NPO TOMORROW NIGHT (03-02) WITH EGD FOR 03-03.
--- NOTE | 2019-03-01 21:45 | NUR ---
PATIENT'S BLOOD TRANSFUSION IS COMPLETE AT THIS TIME. NO REACTIONS NOTED. IV FLUSHED. REPEAT H/H ORDERED FOR MIDNIGHT BY DR. ANGUIANO. PATIENT WATCHING TV IN BED. CALL LIGHT WITHIN REACH.
--- NOTE | 2019-03-01 22:19 | NUR ---
Time: 2044 A 73 year old FEMALE admitted to 5E under services of TAB NAVARRO DO. Pt. arrived via stretcher from ER. Chief complaint: GI BLEED, ANEMIA, DIARRHEA, LEUKOPENIA, HYPOKALEMIA. GABBY ROLAND
[2019-03-02] VITALS (11 sets, daily range): BP systolic 104–141; BP diastolic 46–74
[2019-03-02 00:24] LABS: HEMATOCRIT 23.5 % (37.0-47.0)
[2019-03-02 00:28] LABS: HEMOGLOBIN 6.8 g/dl (12.0-16.0)
--- NOTE | 2019-03-02 00:30 | NUR ---
NOTIFIED DR. ANGUIANO OF CRITICAL H/H OF 6.8/23.5. 1 UNIT OF PRBC ORDERED TO TRANSFUSE.
--- NOTE | 2019-03-02 01:05 | NUR ---
24 HR chart check completed.
--- NOTE | 2019-03-02 01:50 | NUR ---
2ND UNIT OF PRBC WAS STARTED AT THIS TIME. VSS. NO DISTRESS NOTED. PATIENT WATCHING TV IN BED. CALL LIGHT WITHIN REACH.
--- NOTE | 2019-03-02 04:06 | NUR ---
BLOOD TRANSFUSION COMPLETE AT THIS TIME. IV SITE FLUSHED. VSS. NO DISTRESS NOTED. PATIENT STATES NO NEEDS AT THIS TIME. CALL LIGHT WITHIN REACH.
--- NOTE | 2019-03-02 05:30 | NUR ---
PATIENT MEDICATED WITH PRN NORCO FOR C/O 11/04 PAIN IN HER LEGS. WILL MONITOR FOR EFFECTIVENESS.
--- NOTE | 2019-03-02 06:20 | NUR ---
PER PATIENT PRN NORCO EFFECTIVE.
[2019-03-02 06:37] LABS: BASO % 0.5 % (0.0-1.0); EOS # 0.3 10*3/uL (0.0-0.4); EOS % 5.7 % (1.0-4.0); HEMATOCRIT 26.8 % (37.0-47.0); HEMOGLOBIN 7.8 g/dl (12.0-16.0); LYMPH % 22.6 % (27.0-41.0); MEAN CELL VOLUME 76.4 fl (81.0-99.0); MEAN CORPUSCULAR HGB 22.2 pg (27.0-31.0); MEAN CORPUSCULAR HGB CONC 29.1 g/dl (33.0-37.0); MEAN PLATELET VOLUME 9.5 fl (9.6-12.3); MONO # 0.7 10*3/uL (0.1-1.0); MONO % 14.7 % (3.0-9.0); NEUT # 2.5 10*3/uL (2.3-7.9); NEUT % 55.6 % (47.0-73.0); NUCLEATED RED BLOOD CELL 0.5 % (0.0-0.0); PLATELET COUNT AUTOMATED 167 10*3/uL (130-400); RED BLOOD COUNT 3.51 10*6/uL (4.10-5.10); RED CELL DISTRI WIDTH 18.9 % (0-14.5); WHITE BLOOD COUNT 4.4 10*3/uL (4.8-10.8)
[2019-03-02 06:51] LABS: BUN 12 mg/dl (7-24); CHLORIDE 110 mmol/L (98-107); CREATININE 0.75 mg/dL (0.55-1.02); HDL CHOLESTEROL 30 mg/dl (40-60); PHOSPHOROUS 2.5 mg/dL (2.5-4.9); POTASSIUM 3.1 mmol/L (3.5-5.1); SODIUM 142 mmol/L (136-145); TRIGLYCERIDES 56 mg/dl (<150)
[2019-03-02 06:54] LABS: CHOLESTEROL < 50 mg/dL (<200)
--- NOTE | 2019-03-02 09:15 | NUR ---
PT AWAKE. ASSESSMENT COMPLETE. ROUTINE MEDICATIONS WELL TOLERATED. BED LOW CALL BRADY IN REACH
--- NOTE | 2019-03-02 13:20 | NUR ---
Washer Cutter in to talk to patient. Patient states lives at HOME with HOGSHEAD HEAD MATCHER. There are FEW steps in the home. Physician: Ya EDWARDS Pharmacy: [facility] Home health services: NONE Patient's level of ADLs: MINIMAL ASSIST Patient has working utilities: YES DME: [employer] Follow-up physician's appointment after d/c: WILL BE MADE BY HOSPITALIST NURSE DIRECTOR ON DISCHARGE Does patient want to access PORTAL?: NO Discharge plan PT LIVES AT HOME WITH HER HOGSHEAD HEAD MATCHER. STATES SHE IS ABLE TO DO HER ADLS AND MEALS AT HOME. DENIES SHE WILL HAVE ANY NEEDS AT HOME. PLAN IS TO RETURN HOME ON DISCHARGE WHEN MEDICALLY STABLE. WILL CONTINUE TO FOLLOW. WILL HAVE A RIDE HOME PER PT.. CHRISTINE DSOUZA
--- NOTE | 2019-03-02 17:24 | NUR ---
PT C/O GENERALIZED PAIN RATED 6/10. PER HER REQUEST I ADMINISTERED PO NORCO. WILL MONITOR FOR EFFECTIVENESS
--- NOTE | 2019-03-02 18:35 | NUR ---
Patient resting quietly with no c/o discomfort. Respirations easy and regular. Vital signs stable. No overt distress. KATHLEEN BARAHONA
--- NOTE | 2019-03-02 20:11 | NUR ---
24 HR chart check completed.
--- NOTE | 2019-03-02 21:00 | NUR ---
RESTING IN BED WITH NO ACUTE DISTRESS NOTED. RESPIRATIONS EASY. LUNGS DIMINISHED, CLEAR. PULSE OX 94% RA. ABD SOFT WITH HYPERACTIVE BOWEL SOUNDS, CONTINUES TO HAVE LOOSE STOOLS. BLE DISCOLORED AND EDEMATOUS. CALL LIGHT WITHIN REACH. NO VOICED COMPLAINTS. BED ALARM MAINTAINED FOR SAFETY
[2019-03-03] VITALS (8 sets, daily range): BP systolic 98–119; BP diastolic 37–60
[2019-03-03 09:09] LABS: BASO % 0.3 % (0.0-1.0); EOS # 0.2 10*3/uL (0.0-0.4); HEMATOCRIT 26.1 % (37.0-47.0); HEMOGLOBIN 7.8 g/dl (12.0-16.0); LYMPH # 0.7 10*3/uL (1.3-4.4); LYMPH % 19.4 % (27.0-41.0); MEAN CELL VOLUME 76.1 fl (81.0-99.0); MEAN CORPUSCULAR HGB 22.7 pg (27.0-31.0); MEAN CORPUSCULAR HGB CONC 29.9 g/dl (33.0-37.0); MEAN PLATELET VOLUME 8.7 fl (9.6-12.3); MONO # 0.6 10*3/uL (0.1-1.0); MONO % 14.7 % (3.0-9.0); NEUT # 2.3 10*3/uL (2.3-7.9); PLATELET COUNT AUTOMATED 150 10*3/uL (130-400); RED BLOOD COUNT 3.43 10*6/uL (4.10-5.10); RED CELL DISTRI WIDTH 19.5 % (0-14.5); WHITE BLOOD COUNT 3.8 10*3/uL (4.8-10.8)
[2019-03-03 09:40] LABS: BUN 7 mg/dl (7-24); CHLORIDE 108 mmol/L (98-107); CREATININE 0.69 mg/dL (0.55-1.02); POTASSIUM 3.3 mmol/L (3.5-5.1); SODIUM 140 mmol/L (136-145)
--- NOTE | 2019-03-03 14:24 | NUR ---
PT FOR EGD TODAY. WILL CONTINUE TO FOLLOW FOR DISCHARGE NEEDS.
--- NOTE | 2019-03-03 15:11 | NUR ---
PATIENT TO OR BY BED FOR EGD PROCEDURE.
--- NOTE | 2019-03-03 16:20 | NUR ---
PATIENT REMAINS IN SURGERY FOR EGD PROCEDURE.
--- NOTE | 2019-03-03 17:22 | NUR ---
PATIENT RETURNED FROM EGD PROCEDURE, SEE SHIFT ASSESSMENT FOR DETAILS.
[2019-03-04] VITALS: BP 110/45
--- NOTE | 2019-03-04 00:25 | NUR ---
C-DIFF CULTURE SENT AT THIS TIME.
[2019-03-04 06:22] LABS: BASO % 0.5 % (0.0-1.0); EOS # 0.2 10*3/uL (0.0-0.4); EOS % 4.7 % (1.0-4.0); HEMATOCRIT 26.9 % (37.0-47.0); HEMOGLOBIN 7.7 g/dl (12.0-16.0); LYMPH # 0.9 10*3/uL (1.3-4.4); LYMPH % 20.3 % (27.0-41.0); MEAN CELL VOLUME 76.2 fl (81.0-99.0); MEAN CORPUSCULAR HGB 21.8 pg (27.0-31.0); MEAN CORPUSCULAR HGB CONC 28.6 g/dl (33.0-37.0); MEAN PLATELET VOLUME 9.2 fl (9.6-12.3); MONO # 0.6 10*3/uL (0.1-1.0); MONO % 12.4 % (3.0-9.0); NEUT # 2.7 10*3/uL (2.3-7.9); NEUT % 60.7 % (47.0-73.0); PLATELET COUNT AUTOMATED 164 10*3/uL (130-400); RED BLOOD COUNT 3.53 10*6/uL (4.10-5.10); RED CELL DISTRI WIDTH 19.9 % (0-14.5); WHITE BLOOD COUNT 4.4 10*3/uL (4.8-10.8)
[2019-03-04 06:27] LABS: ALBUMIN 2.5 gm/dl (3.1-4.5); ALKALINE PHOSPHATASE 73 U/L (45-117); BUN 11 mg/dl (7-24); CHLORIDE 111 mmol/L (98-107); CREATININE 0.79 mg/dL (0.55-1.02); POTASSIUM 3.5 mmol/L (3.5-5.1); SGOT/AST 20 IU/L (3-35); SGPT/ALT 14 U/L (12-78); SODIUM 142 mmol/L (136-145); TOTAL PROTEIN 5.9 gm/dL (6.4-8.2)
[2019-03-04 08:00] VITALS: BP 105/50
--- NOTE | 2019-03-04 10:32 | NUR ---
DR IVEY ROUNDED AND SEEN PT.
--- NOTE | 2019-03-04 11:03 | NUR ---
RESTING IN BED. RESPS EASY ON RA. VOICES NO NEEDS. STABLE AT THIS TIME. BED ALARM INTACT. CALL LIGHT IN REACH.
--- NOTE | 2019-03-04 11:38 | NUR ---
PT IS HAVING A COLONSCOPY TOMORROW WITH DR RYDER. STATES SHE WILL GO HOME AFTER DISCHARGE. WILL HAVE NO NEEDS. WILL CONTINUE TO FOLLOW.
[2019-03-04 12:00] VITALS: BP 109/53
[2019-03-04 16:00] VITALS: BP 106/50
--- NOTE | 2019-03-04 19:30 | NUR ---
REPORT RECEIVED ON PT AT THIS TIME. PT SITTING UP ON BEDSIDE COMMODE AT THIS TIME. PT DENIES NEEDING ANYTHING. PT UPDATED ON PLAN OF CARE FOR THE NIGHT REGARDING COLO PREP. WILL CONTINUE TO MONITOR PT. CALL LIGHT IN REACH.
[2019-03-04 20:00] VITALS: BP 119/53
[2019-03-05] VITALS: BP 114/50
--- NOTE | 2019-03-05 | NUR ---
PT SLEEPING IN BED. RESPIRATIONS EASY AND UNLABORED. NO S/S OF DISTRESS. CALL LIGHT IN REACH.
--- NOTE | 2019-03-05 05:00 | NUR ---
ENEMA GIVEN PER COLONOSCOPY PREP PROTOCOL. PT TOLERATED WELL. WILL MONITOR PT STOOL TO ENSURE THAT IT IS CLEAR.
[2019-03-05 06:20] LABS: BASO % 0.6 % (0.0-1.0); EOS # 0.3 10*3/uL (0.0-0.4); EOS % 6.2 % (1.0-4.0); HEMATOCRIT 28.3 % (37.0-47.0); HEMOGLOBIN 8.4 g/dl (12.0-16.0); LYMPH # 0.8 10*3/uL (1.3-4.4); LYMPH % 17.8 % (27.0-41.0); MEAN CELL VOLUME 76.9 fl (81.0-99.0); MEAN CORPUSCULAR HGB 22.8 pg (27.0-31.0); MEAN CORPUSCULAR HGB CONC 29.7 g/dl (33.0-37.0); MEAN PLATELET VOLUME 8.8 fl (9.6-12.3); MONO # 0.5 10*3/uL (0.1-1.0); MONO % 10.3 % (3.0-9.0); NEUT % 63.2 % (47.0-73.0); PLATELET COUNT AUTOMATED 168 10*3/uL (130-400); RED BLOOD COUNT 3.68 10*6/uL (4.10-5.10); WHITE BLOOD COUNT 4.7 10*3/uL (4.8-10.8)
[2019-03-05 06:32] LABS: BUN 8 mg/dl (7-24); CHLORIDE 110 mmol/L (98-107); CREATININE 0.78 mg/dL (0.55-1.02); POTASSIUM 3.2 mmol/L (3.5-5.1); SODIUM 142 mmol/L (136-145)
[2019-03-05 08:00] VITALS: BP 113/56
--- NOTE | 2019-03-05 09:56 | NUR ---
PT TRANSPORTED VIA BED TO OR FOR COLO WITH ALEKSEY.
[2019-03-05 10:08] VITALS: BP 114/57
[2019-03-05 11:15] VITALS: BP 102/45
[2019-03-05 11:30] VITALS: BP 106/56
[2019-03-05 12:00] VITALS: BP 110/52
--- NOTE | 2019-03-05 15:00 | NUR ---
NOTIFIED DR TRACY PT WAS STILL BLEEDING FROM THROMBOSED HEMMORHOID I & D THIS AM. CLARIFIED D/C ORDERS. PER DR TRACY PT TO BE MONITORED FOR FEW HOURS AND THEN D/C'D".NOTIFIED SP BEHAVIORAL INSTRUCTOR FABIEN.
--- NOTE | 2019-03-05 18:00 | NUR ---
PT HAS HAD TWO BM WITHOUT BLOOD SINCE I7D. PT DAUGHTER AND PT OK WITH D/C TO HOME. PT EDUCATION PROVIDED.
--- NOTE | 2019-03-05 18:09 | NUR ---
Discharge instructions reviewed with patient/family. Patient receptive and verbalizes understanding. Follow-up care arranged. Written instructions given to patient/family. LISA BISWAS
== END 2019-03-05 18:05 | disposition home or self-care (01) | DRG 871 ==
LOC: ED 14:50 → EDHOLD 19:16 → 5E 19:16
PROVIDERS: Internal Medicine; Nurse Practitioner; Student in an Organized Health Care Education/Training Program; ADMIT Family Medicine
PROC: 30233N1 Transfusion of Nonautologous Red Blood Cells into Peripheral Vein, Percutaneous Approach (ICD-10-PCS; 2019-03-01)
PROC: 0DB68ZX Excision of Stomach, Via Natural or Artificial Opening Endoscopic, Diagnostic (ICD-10-PCS; 2019-03-03)
PROC: 0DBN8ZX Excision of Sigmoid Colon, Via Natural or Artificial Opening Endoscopic, Diagnostic (ICD-10-PCS; principal; 2019-03-05)
DX: A41.9 Sepsis, unspecified organism (principal); K25.4 Chronic or unspecified gastric ulcer with hemorrhage; K26.4 Chronic or unspecified duodenal ulcer with hemorrhage; K29.71 Gastritis, unspecified, with bleeding; E44.0 Moderate protein-calorie malnutrition; Z68.41 Body mass index [BMI] 40.0-44.9, adult; T39.395A Adverse effect of other nonsteroidal anti-inflammatory drugs [NSAID], initial encounter; K74.60 Unspecified cirrhosis of liver; A08.4 Viral intestinal infection, unspecified; E87.6 Hypokalemia; K57.90 Diverticulosis of intestine, part unspecified, without perforation or abscess without bleeding; E87.8 Other disorders of electrolyte and fluid balance, not elsewhere classified; E53.8 Deficiency of other specified B group vitamins; E66.9 Obesity, unspecified; I35.0 Nonrheumatic aortic (valve) stenosis; D50.0 Iron deficiency anemia secondary to blood loss (chronic); K44.9 Diaphragmatic hernia without obstruction or gangrene; Z90.710 Acquired absence of both cervix and uterus; Z82.49 Family history of ischemic heart disease and other diseases of the circulatory system; Y92.89 Other specified places as the place of occurrence of the external cause

== ENCOUNTER → 2019-04-15 | Outpatient (CLI) | payer OTHER, MEDICAID ==
[~2019-04-15] MED LIST changes: +BACLOFEN5 MG PO; +LIPITOR10 MG PO; +OMEPRAZOLE MAGN20 MG PO
== END | disposition home or self-care (01) ==
LOC: CARD 13:57
DX: I51.7 Cardiomegaly (principal)

== ENCOUNTER → 2019-04-22 | Outpatient (CLI) | payer OTHER, MEDICAID ==
[~2019-04-22] MED LIST changes: +OMEPRAZOLE20 M3 PO
[2019-04-22 13:35] LABS: BILIRUBIN NEGATIVE (NEGATIVE); BLOOD 2+ (NEGATIVE); CLARITY CLOUDY (CLEAR); COLOR YELLOW (YELLOW); GLUCOSE NEGATIVE (NEGATIVE); KETONE NEGATIVE (NEGATIVE); LEUKO ESTERASE 2+ (NEGATIVE); NITRITE NEGATIVE (NEGATIVE); UROBILINOGEN 0.2 E.U./dl (0.2-1.0)
[2019-04-22 13:51] LABS: BACTERIA 3+; WBC TNTC wbc/hpf (0-5)
== END | disposition home or self-care (01) ==
LOC: LAB 12:52
PROVIDERS: Urology
DX: R30.0 Dysuria (principal)

== ENCOUNTER 2019-04-23 03:50 | Inpatient (IN) | payer OTHER, MEDICAID ==
[~2019-04-23] VITALS: Ht 160 cm; Wt 98.9 kg
[~2019-04-23 03:50] MED LIST changes: -OMEPRAZOLE20 M3 PO
[2019-04-23 03:54] VITALS: BP 113/45
[2019-04-23 04:55] LABS: BASO % 0.5 % (0.0-1.0); EOS # 0.1 10*3/uL (0.0-0.4); EOS % 1.3 % (1.0-4.0); HEMATOCRIT 31.4 % (37.0-47.0); HEMOGLOBIN 9.4 g/dl (12.0-16.0); LYMPH # 0.8 10*3/uL (1.3-4.4); LYMPH % 12.6 % (27.0-41.0); MEAN CELL VOLUME 77.7 fl (81.0-99.0); MEAN CORPUSCULAR HGB 23.3 pg (27.0-31.0); MEAN CORPUSCULAR HGB CONC 29.9 g/dl (33.0-37.0); MEAN PLATELET VOLUME 8.6 fl (9.6-12.3); MONO # 0.6 10*3/uL (0.1-1.0); MONO % 8.9 % (3.0-9.0); NEUT # 4.7 10*3/uL (2.3-7.9); NEUT % 76.4 % (47.0-73.0); PLATELET COUNT AUTOMATED 194 10*3/uL (130-400); RED BLOOD COUNT 4.04 10*6/uL (4.10-5.10); RED CELL DISTRI WIDTH 21.1 % (0-14.5); WHITE BLOOD COUNT 6.2 10*3/uL (4.8-10.8)
[2019-04-23 04:56] LABS: BILIRUBIN NEGATIVE (NEGATIVE); BLOOD 3+ (NEGATIVE); CLARITY SL CLOUDY (CLEAR); COLOR YELLOW (YELLOW); GLUCOSE NEGATIVE (NEGATIVE); KETONE NEGATIVE (NEGATIVE); LEUKO ESTERASE 3+ (NEGATIVE); NITRITE POSITIVE (NEGATIVE)
[2019-04-23 05:03] LABS: WBC TNTC wbc/hpf (0-5)
[2019-04-23 05:14] LABS: ALBUMIN 3.2 gm/dl (3.1-4.5); ALKALINE PHOSPHATASE 109 U/L (45-117); BUN 17 mg/dl (7-24); CHLORIDE 111 mmol/L (98-107); CREATININE 0.88 mg/dL (0.55-1.02); POTASSIUM 3.6 mmol/L (3.5-5.1); SGOT/AST 69 IU/L (3-35); SGPT/ALT 26 U/L (12-78); SODIUM 142 mmol/L (136-145)
[2019-04-23 07:29] VITALS: BP 119/51
[2019-04-23 10:30] VITALS: BP 113/46
[2019-04-23] MEDS ORDERED: OMEPRAZOLE20 M3 PO (11:25)
[2019-04-23 16:00] VITALS: BP 115/61
[2019-04-23 20:00] VITALS: BP 109/50
[2019-04-24] VITALS: BP 111/61
[2019-04-24 06:44] LABS: BASO # 0.1 10*3/uL (0.0-0.1); BASO % 0.9 % (0.0-1.0); EOS # 0.4 10*3/uL (0.0-0.4); EOS % 7.7 % (1.0-4.0); HEMATOCRIT 28.5 % (37.0-47.0); HEMOGLOBIN 8.2 g/dl (12.0-16.0); LYMPH # 1.4 10*3/uL (1.3-4.4); LYMPH % 25.3 % (27.0-41.0); MEAN CELL VOLUME 79.2 fl (81.0-99.0); MEAN CORPUSCULAR HGB 22.8 pg (27.0-31.0); MEAN CORPUSCULAR HGB CONC 28.8 g/dl (33.0-37.0); MEAN PLATELET VOLUME 8.5 fl (9.6-12.3); MONO # 0.6 10*3/uL (0.1-1.0); MONO % 10.4 % (3.0-9.0); NEUT % 55.3 % (47.0-73.0); PLATELET COUNT AUTOMATED 164 10*3/uL (130-400); RED CELL DISTRI WIDTH 21.2 % (0-14.5); WHITE BLOOD COUNT 5.5 10*3/uL (4.8-10.8)
[2019-04-24 07:00] LABS: ALBUMIN 2.7 gm/dl (3.1-4.5); ALKALINE PHOSPHATASE 92 U/L (45-117); BUN 13 mg/dl (7-24); CHLORIDE 112 mmol/L (98-107); CREATININE 0.79 mg/dL (0.55-1.02); PHOSPHOROUS 3.2 mg/dL (2.5-4.9); SGOT/AST 92 IU/L (3-35); SGPT/ALT 37 U/L (12-78); SODIUM 143 mmol/L (136-145); TOTAL PROTEIN 6.3 gm/dL (6.4-8.2)
[2019-04-24 08:00] VITALS: BP 104/58
[2019-04-24 12:00] VITALS: BP 116/54
[2019-04-24 16:00] VITALS: BP 115/54
[2019-04-24 20:00] VITALS: BP 117/51
[2019-04-25] VITALS: BP 126/66
[2019-04-25 08:00] VITALS: BP 124/98
[2019-04-25 12:00] VITALS: BP 115/56
[2019-04-25 16:00] VITALS: BP 117/87
[2019-04-25 20:00] VITALS: BP 112/51
[2019-04-26] VITALS: BP 116/53
[2019-04-26 08:00] VITALS: BP 113/54
[2019-04-26 12:00] VITALS: BP 99/44
[2019-04-26] MEDS ORDERED: CEPHALEXIN500 M1 PO (12:08)
[2019-04-26 16:00] VITALS: BP 100/66
[2019-04-26 20:00] VITALS: BP 120/55
[2019-04-27] VITALS: BP 107/58
[2019-04-27 06:30] LABS: BASO % 0.8 % (0.0-1.0); EOS # 0.4 10*3/uL (0.0-0.4); EOS % 7.4 % (1.0-4.0); HEMATOCRIT 26.8 % (37.0-47.0); HEMOGLOBIN 7.9 g/dl (12.0-16.0); LYMPH # 1.2 10*3/uL (1.3-4.4); LYMPH % 23.9 % (27.0-41.0); MEAN CELL VOLUME 77.5 fl (81.0-99.0); MEAN CORPUSCULAR HGB 22.8 pg (27.0-31.0); MEAN CORPUSCULAR HGB CONC 29.5 g/dl (33.0-37.0); MEAN PLATELET VOLUME 8.7 fl (9.6-12.3); MONO # 0.6 10*3/uL (0.1-1.0); MONO % 11.2 % (3.0-9.0); NEUT # 2.7 10*3/uL (2.3-7.9); NEUT % 56.1 % (47.0-73.0); PLATELET COUNT AUTOMATED 186 10*3/uL (130-400); RED BLOOD COUNT 3.46 10*6/uL (4.10-5.10); RED CELL DISTRI WIDTH 21.4 % (0-14.5); WHITE BLOOD COUNT 4.9 10*3/uL (4.8-10.8)
[2019-04-27 06:58] LABS: CREATININE 0.73 mg/dL (0.55-1.02)
[2019-04-27 08:00] VITALS: BP 112/45
[2019-04-27 12:00] VITALS: BP 105/53
[2019-04-27 16:00] VITALS: BP 110/57
[2019-04-27 20:00] VITALS: BP 114/48
[2019-04-28] VITALS: BP 109/47
[2019-04-28 06:00] LABS: BASO % 0.8 % (0.0-1.0); EOS # 0.4 10*3/uL (0.0-0.4); EOS % 8.9 % (1.0-4.0); HEMOGLOBIN 7.7 g/dl (12.0-16.0); LYMPH % 21.5 % (27.0-41.0); MEAN CELL VOLUME 78.1 fl (81.0-99.0); MEAN CORPUSCULAR HGB 23.1 pg (27.0-31.0); MEAN CORPUSCULAR HGB CONC 29.6 g/dl (33.0-37.0); MEAN PLATELET VOLUME 9.1 fl (9.6-12.3); MONO # 0.6 10*3/uL (0.1-1.0); MONO % 11.6 % (3.0-9.0); NEUT # 2.7 10*3/uL (2.3-7.9); NEUT % 56.6 % (47.0-73.0); PLATELET COUNT AUTOMATED 164 10*3/uL (130-400); RED BLOOD COUNT 3.33 10*6/uL (4.10-5.10); RED CELL DISTRI WIDTH 21.2 % (0-14.5); WHITE BLOOD COUNT 4.7 10*3/uL (4.8-10.8)
[2019-04-28 08:00] VITALS: BP 112/70
[2019-04-28 12:00] VITALS: BP 117/82
[2019-04-28 16:00] VITALS: BP 123/93
[2019-04-28 20:00] VITALS: BP 114/42
[2019-04-29] VITALS: BP 113/46
[2019-04-29 06:58] LABS: BASO # 0.1 10*3/uL (0.0-0.1); BASO % 0.9 % (0.0-1.0); EOS # 0.4 10*3/uL (0.0-0.4); EOS % 6.5 % (1.0-4.0); HEMATOCRIT 25.7 % (37.0-47.0); HEMOGLOBIN 7.6 g/dl (12.0-16.0); LYMPH # 1.2 10*3/uL (1.3-4.4); MEAN CELL VOLUME 78.4 fl (81.0-99.0); MEAN CORPUSCULAR HGB 23.2 pg (27.0-31.0); MEAN CORPUSCULAR HGB CONC 29.6 g/dl (33.0-37.0); MEAN PLATELET VOLUME 9.4 fl (9.6-12.3); MONO # 0.5 10*3/uL (0.1-1.0); MONO % 9.7 % (3.0-9.0); NEUT # 3.3 10*3/uL (2.3-7.9); NEUT % 60.5 % (47.0-73.0); PLATELET COUNT AUTOMATED 173 10*3/uL (130-400); RED BLOOD COUNT 3.28 10*6/uL (4.10-5.10); RED CELL DISTRI WIDTH 21.2 % (0-14.5); WHITE BLOOD COUNT 5.4 10*3/uL (4.8-10.8)
[2019-04-29 07:33] LABS: BUN 14 mg/dl (7-24); CHLORIDE 110 mmol/L (98-107); CREATININE 0.66 mg/dL (0.55-1.02); POTASSIUM 3.7 mmol/L (3.5-5.1); SODIUM 142 mmol/L (136-145)
[2019-04-29 08:00] VITALS: BP 116/48
[2019-04-29 08:12] LABS: IRON 24 ug/dL (50-170); TOTAL IRON BINDING CAPACITY 319 ug/dl (250-450)
[2019-04-29 12:00] VITALS: BP 111/52
[2019-04-29 18:00] VITALS: BP 113/46
[2019-04-29 20:00] VITALS: BP 111/51
[2019-04-30] VITALS: BP 127/57
[2019-04-30 08:00] VITALS: BP 111/45
[2019-04-30 12:00] VITALS: BP 110/52
[2019-04-30 16:00] VITALS: BP 111/54
[2019-04-30 20:00] VITALS: BP 122/52
[2019-05-01] VITALS: BP 104/66; BP 120/52
[2019-05-01 06:33] LABS: BASO % 0.6 % (0.0-1.0); EOS # 0.4 10*3/uL (0.0-0.4); EOS % 8.7 % (1.0-4.0); HEMATOCRIT 25.6 % (37.0-47.0); HEMOGLOBIN 7.6 g/dl (12.0-16.0); LYMPH # 1.2 10*3/uL (1.3-4.4); LYMPH % 23.7 % (27.0-41.0); MEAN CELL VOLUME 78.3 fl (81.0-99.0); MEAN CORPUSCULAR HGB 23.2 pg (27.0-31.0); MEAN CORPUSCULAR HGB CONC 29.7 g/dl (33.0-37.0); MONO # 0.5 10*3/uL (0.1-1.0); MONO % 10.7 % (3.0-9.0); NEUT # 2.8 10*3/uL (2.3-7.9); NEUT % 55.9 % (47.0-73.0); PLATELET COUNT AUTOMATED 171 10*3/uL (130-400); RED BLOOD COUNT 3.27 10*6/uL (4.10-5.10); RED CELL DISTRI WIDTH 21.2 % (0-14.5); WHITE BLOOD COUNT 5.1 10*3/uL (4.8-10.8)
[2019-05-01 06:54] LABS: CREATININE 0.65 mg/dL (0.55-1.02)
[2019-05-01 08:00] VITALS: BP 104/58
[2019-05-01 12:00] VITALS: BP 133/57
[2019-05-01 16:00] VITALS: BP 129/59
[2019-05-01 20:00] VITALS: BP 114/48
[2019-05-02 08:00] VITALS: BP 104/55
[2019-05-02 12:00] VITALS: BP 121/52
[2019-05-02 16:00] VITALS: BP 101/64
[2019-05-02 20:00] VITALS: BP 117/47
[2019-05-03] VITALS: BP 116/56
[2019-05-03 12:00] VITALS: BP 116/47
[2019-05-03 16:00] VITALS: BP 134/54
[2019-05-03 20:00] VITALS: BP 122/54
[2019-05-04] VITALS: BP 115/55
[2019-05-04 08:00] VITALS: BP 118/68
[2019-05-04 12:00] VITALS: BP 128/62
== END 2019-05-04 16:55 | disposition other institution (70) | DRG 571 ==
LOC: ED 03:50 → EDHOLD 08:56 → 5E 08:56
PROVIDERS: Emergency Medicine; Internal Medicine; Registered Nurse; Student in an Organized Health Care Education/Training Program; ADMIT Emergency Medicine
PROC: 0JBP0ZZ Excision of Left Lower Leg Subcutaneous Tissue and Fascia, Open Approach (ICD-10-PCS; principal; 2019-04-26)
DX: L03.116 Cellulitis of left lower limb (principal); N39.0 Urinary tract infection, site not specified; E44.0 Moderate protein-calorie malnutrition; L97.921 Non-pressure chronic ulcer of unspecified part of left lower leg limited to breakdown of skin; E87.8 Other disorders of electrolyte and fluid balance, not elsewhere classified; K21.9 Gastro-esophageal reflux disease without esophagitis; R33.8 Other retention of urine; D50.9 Iron deficiency anemia, unspecified; M81.0 Age-related osteoporosis without current pathological fracture; B96.1 Klebsiella pneumoniae [K. pneumoniae] as the cause of diseases classified elsewhere; Z90.710 Acquired absence of both cervix and uterus; Z82.49 Family history of ischemic heart disease and other diseases of the circulatory system; Z79.899 Other long term (current) drug therapy; Z68.38 Body mass index [BMI] 38.0-38.9, adult

== ENCOUNTER 2019-11-01 00:27 | Observation (INO) | payer OTHER, MEDICAID ==
[2019-11-01] VITALS (9 sets, daily range): BP systolic 110–127; BP diastolic 43–60
[~2019-11-01] VITALS: Ht 162.5 cm; Wt 93.2 kg
[~2019-11-01 00:27] MED LIST changes: +OMEPRAZOLE20 M3 PO
[2019-11-01 00:49] LABS: BASO % 0.8 % (0.0-1.0); EOS # 0.3 10*3/uL (0.0-0.4); EOS % 6.5 % (1.0-4.0); LYMPH # 1.4 10*3/uL (1.3-4.4); LYMPH % 28.8 % (27.0-41.0); MEAN CELL VOLUME 76.7 fl (81.0-99.0); MEAN PLATELET VOLUME 9.2 fl (9.6-12.3); MONO # 0.5 10*3/uL (0.1-1.0); MONO % 10.3 % (3.0-9.0); NEUT # 2.5 10*3/uL (2.3-7.9); NEUT % 53.2 % (47.0-73.0); PLATELET COUNT AUTOMATED 152 10*3/uL (130-400); RED BLOOD COUNT 3.91 10*6/uL (4.10-5.10); RED CELL DISTRI WIDTH 18.1 % (0-14.5); WHITE BLOOD COUNT 4.8 10*3/uL (4.8-10.8)
[2019-11-01 01:00] LABS: INTERNATIONAL NORM RATIO 1.1 (2.0-3.5)
[2019-11-01 01:07] LABS: ALBUMIN 3.2 gm/dl (3.1-4.5); ALKALINE PHOSPHATASE 94 U/L (45-117); BUN 15 mg/dl (7-24); CHLORIDE 106 mmol/L (98-107); CREATININE 0.87 mg/dL (0.55-1.02); POTASSIUM 3.7 mmol/L (3.5-5.1); SGOT/AST 21 IU/L (3-35); SGPT/ALT 17 U/L (12-78); SODIUM 140 mmol/L (136-145); TOTAL PROTEIN 6.8 gm/dL (6.4-8.2); TROPONIN I < 0.015 ng/ml (<0.045)
--- NOTE | 2019-11-01 02:41 | NUR ---
PT ASKED AGAIN IF ANY OPEN WOUNDS . PT STATES NO HER LEGS SWELL BUT NOTHING IS OPEN. BRI RAYMOND RN.
--- NOTE | 2019-11-01 03:00 | NUR ---
A 73, admitted to 5E, under the services of WILTON Chau DO with a diagnosis of CHEST PAIN. Chief complaint is LEFT ARM ACHING AT HOME.. Patient arrived via bed from ER. Monitor applied. Initial assessment completed. Vital signs taken and recorded. WILTON CHAU DO notified of admission to the unit. Orders received. See assessment for past medical history, medications and allergies. Patient and/or family oriented to unit. [address] visitation policy reviewed. Clothing/patient valuable form completed. CHIDI GONZALEZ R
--- NOTE | 2019-11-01 03:15 | NUR ---
IRENE CARD [id number] Please refer to the physician's history and physical for past medical history, comorbid conditions, and allergies. Diagnosis: CHEST PAIN Jose Score: , WOUND DESCRIPTIONS: Patient's has red blanchable areas noted to bilateral abdominal folds and bilateral groin at time of assessment. No drainage at time of assessment. Musty odor noted at time of assessment. Patient states this is because of the extra flab. Patient states she uses stuff and home and will continue to do so when she returns. Patient has dry flaky areas noted to bilateral lower extremities. No open areas noted at time of assessment to BLE's no drainage ntoed at time of assessment to BLE's. Patient states she uses cream at home and will continue to do so when she returns. Surface the patient is resting on: Isoflex SKIN PREVENTION RECOMMENDATION: 1. Pressure redistribution support surface as appropriate 2. Elevate heels 3. Remove boots/TEDS every shift and reapply 4. Head of bed 30 degrees as tolerated 5. Assess nutrition and hydration 6. Manage moisture 7. Avoid the use of containment devices while in bed 8. Use absorptive products on surfaces limit layers of linens on bed 9. Turn and reposition every 1-2 hours in bed and every 1 hour in chair as tolerated 10. Weight shifts every 15 minutes while up in chair 11. Offloading with pillows or device to keep heels elevated off bed 12. Monitor skin at least every shift 13. Inspect under medical devices twice a day WOUND TREATMENT RECOMMENDATIONS: Cleanse bilateral lower extremities with soap and water pat areas dry then apply lac hydrin BID. Cleanse bilateral abodminal fold and bilateral groin area with soap and water pat areas dry then apply nystain powder every 8 hours.
[2019-11-01] MEDS ORDERED: LASIX20 MG PO (03:40)
--- NOTE | 2019-11-01 04:26 | NUR ---
TRIED TO CALL DR. WADDELL FOR ORDERS, NO ANSWER AT THIS TIME.
--- NOTE | 2019-11-01 04:41 | NUR ---
CALLED DR. WADDELL MADE AWARE NEED ORDERS, MEDICATION WAS REVIEWED. ALSO MADE AWARE PT ABD FOLD EXCORIATED AND ODOR. ALSO BLE DRY AND FLAKY.
--- NOTE | 2019-11-01 05:50 | NUR ---
PT ASSISTED UP TO BSC AND BACK TO BED WITH MAX ASSIST. TOLERATED ROUTINE MED WITH NO PROBLEM. NO C/O AT THIS TIME. CALL LIGHT IN REACH. BED ALARM ON.
[2019-11-01 06:37] LABS: BASO % 0.7 % (0.0-1.0); EOS # 0.3 10*3/uL (0.0-0.4); EOS % 6.7 % (1.0-4.0); HEMATOCRIT 29.1 % (37.0-47.0); LYMPH # 1.2 10*3/uL (1.3-4.4); LYMPH % 28.6 % (27.0-41.0); MEAN CELL VOLUME 78.6 fl (81.0-99.0); MEAN CORPUSCULAR HGB 23.2 pg (27.0-31.0); MEAN CORPUSCULAR HGB CONC 29.6 g/dl (33.0-37.0); MEAN PLATELET VOLUME 8.7 fl (9.6-12.3); MONO # 0.5 10*3/uL (0.1-1.0); MONO % 10.4 % (3.0-9.0); NEUT # 2.3 10*3/uL (2.3-7.9); NEUT % 53.1 % (47.0-73.0); PLATELET COUNT AUTOMATED 132 10*3/uL (130-400); RED CELL DISTRI WIDTH 18.2 % (0-14.5); WHITE BLOOD COUNT 4.3 10*3/uL (4.8-10.8)
[2019-11-01 07:07] LABS: ALKALINE PHOSPHATASE 84 U/L (45-117); BUN 14 mg/dl (7-24); CHLORIDE 106 mmol/L (98-107); CHOLESTEROL 61 mg/dL (<200); CREATININE 0.84 mg/dL (0.55-1.02); HDL CHOLESTEROL 44 mg/dl (40-60); LDL CHOLESTEROL 9 mg/dL (9-159); POTASSIUM 3.8 mmol/L (3.5-5.1); SGOT/AST 20 IU/L (3-35); SGPT/ALT 16 U/L (12-78); SODIUM 140 mmol/L (136-145); TOTAL PROTEIN 6.6 gm/dL (6.4-8.2); TRIGLYCERIDES 40 mg/dl (<150); VLDL CHOLESTEROL 8 mg/dL (6-40)
--- NOTE | 2019-11-01 07:42 | NUR ---
Nursing screen received and chart reviewed. Patient admitted from home for chest pain. If patient has a decline in ADLs, transfers, or functional mobility, please send OT orders. Thank you. Elizabeth Fernandez, OTR/L
--- NOTE | 2019-11-01 07:53 | NUR ---
24 HR chart check completed.
--- NOTE | 2019-11-01 07:58 | NUR ---
PHYSICAL THERAPY Screen received pt admitted with chest pain, please consult PT if pt has a decline in functional status from baseline,thank you. Pita Monge PT
--- NOTE | 2019-11-01 13:15 | NUR ---
PT REQUESTING A CATHETER. CALLED LINDSEY AND NOTIFIED HER. SHE SAID TO BLADDER SCAN THE PATIENT AND CALL BACK WITH RESULTS.
--- NOTE | 2019-11-01 13:36 | NUR ---
BLADDER SCANNED PT. PT HAD A PVR OF 477 ML. CALLED AND NOTIFIED LINDSEY. CATHETER WAS ORDERED AT THIS TIME.
--- NOTE | 2019-11-01 21:00 | NUR ---
PT RESTING IN BED. RESP-EASY AND REGULAR. NO C/O AT THIS TIME. PT FEET ELEVATED UP ON PILLOW. CALL LIGHT IN REACH. SEE SHIFT ASSESSMENT.
--- NOTE | 2019-11-01 21:05 | NUR ---
DR. TRACY CALLED REGARDING PT REQUESTING SLEEPING PILL. ALSO ORDER FOR LAC-HYDRIN FOR LEGS.
--- NOTE | 2019-11-01 22:20 | NUR ---
PT MEDICATED WITH RESTORIL PO SEE EMAR FOR INSOMINA. NO C/O AT THIS TIME. CALL LIGHT IN REACH.
[2019-11-02] VITALS: BP 116/53
--- NOTE | 2019-11-02 | NUR ---
PT SLEEPING IN BED. RESP-EASY AND REGULAR. MEDICATION SEEMS TO BE EFFECTIVE. CALL LIGHT IN REACH. SEE SHIFT ASSESSMENT.
--- NOTE | 2019-11-02 06:00 | NUR ---
PT ASSISTED UP TO BEDSIDE. TOLERATED ROUTINE MED WITH MNO PROBLEM. CALL LIGHT IN REACH.
[2019-11-02 07:38] LABS: BASO % 0.6 % (0.0-1.0); EOS # 0.3 10*3/uL (0.0-0.4); EOS % 5.5 % (1.0-4.0); HEMATOCRIT 29.9 % (37.0-47.0); LYMPH # 1.3 10*3/uL (1.3-4.4); LYMPH % 28.1 % (27.0-41.0); MEAN CELL VOLUME 78.7 fl (81.0-99.0); MEAN CORPUSCULAR HGB 23.2 pg (27.0-31.0); MEAN CORPUSCULAR HGB CONC 29.4 g/dl (33.0-37.0); MEAN PLATELET VOLUME 9.5 fl (9.6-12.3); MONO # 0.5 10*3/uL (0.1-1.0); MONO % 9.5 % (3.0-9.0); NEUT # 2.7 10*3/uL (2.3-7.9); NEUT % 56.1 % (47.0-73.0); PLATELET COUNT AUTOMATED 162 10*3/uL (130-400); RED CELL DISTRI WIDTH 18.5 % (0-14.5); WHITE BLOOD COUNT 4.7 10*3/uL (4.8-10.8)
[2019-11-02 08:00] VITALS: BP 120/58
--- NOTE | 2019-11-02 08:25 | NUR ---
[facility] CATHETER REMOVED ORDERED.
--- NOTE | 2019-11-02 08:30 | NUR ---
Fast Food Sales Assistant in to talk to patient. Patient states lives at home alone with her daughters living in a trailer right in front of her. There are no steps in the home. There is a wheelchair ramp. Physician: Joshua Cruz [facility]: [facility] Home health services: has had [facility] in the past Patient's level of ADLs: MINIMAL ASSIST Patient has working utilities: yes DME: wheelchair, motorized scooter Follow-up physician's appointment after d/c: will be made by the hospitalist nurse director upon discharge Does patient want to access PORTAL?: no Discharge plan discussed with patient. Patient lives at home alone on the first floor of her home with accessibility to laundry and bathroom. She states her daughters live in a trailer right in front of her home and if she needs anything all she has to do is call them. She is independent in her ADLs and uses a wheelchair or a motorized scooter. She drives. Discussed home health care services and she denies any home needs at this time. When medically stable she will be discharged to home. She states her daughter, Elenita, will provide transportation on discharge. SARAVANAN JOYNER
--- NOTE | 2019-11-02 10:47 | NUR ---
Tipple Worker in to discuss home health services with patient. Asked if patient currently had home health care services and she asked what home health care services were. Explained that is where a nurse can come to her home and assess her medications, take her vitals, and assess her or physical/occupational therapy can work with her at home to gain strength. She denies she currently has home health care services and when asked if she thought she needed home health care services at home, she denies. Tracee Espino notified.
--- NOTE | 2019-11-02 11:00 | NUR ---
PATIENT REFUSES DISCHARGE WOUND PHOTOS TO BE OBTAINED BECAUSE SHE STATES THAT HER LEGS ARE NOT DRAINING.
--- NOTE | 2019-11-02 11:50 | NUR ---
Discharge instructions reviewed with patient/family. Patient receptive and verbalizes understanding. Follow-up care arranged. Written instructions given to patient/family. PATIENT DISCHARGED VIA WHEELCHAIR TO FRONT DOOR TO DAUGHTER. JACQUELYN DSOUZA
== END 2019-11-02 11:50 | disposition home or self-care (01) ==
LOC: ED 00:27 → EDHOLD 02:16 → 5E 02:16
PROVIDERS: Emergency Medicine; Registered Nurse; Student in an Organized Health Care Education/Training Program; ADMIT Internal Medicine
DX: R07.89 Other chest pain (principal); E83.51 Hypocalcemia; E78.5 Hyperlipidemia, unspecified; E66.9 Obesity, unspecified; R26.2 Difficulty in walking, not elsewhere classified; E44.0 Moderate protein-calorie malnutrition; D50.9 Iron deficiency anemia, unspecified; K21.9 Gastro-esophageal reflux disease without esophagitis; M06.9 Rheumatoid arthritis, unspecified

== ENCOUNTER 2020-05-06 13:22 | Inpatient (IN) | payer OTHER, MEDICAID ==
[~2020-05-06] VITALS: Ht 163 cm; Wt 103.0 kg
[2020-05-06] VITALS (14 sets, daily range): BP systolic 86–111; BP diastolic 40–59
[2020-05-06 13:46] LABS: BASO % 0.2 % (0.0-1.0); EOS % 0.2 % (1.0-4.0); HEMATOCRIT 35.8 % (37.0-47.0); LYMPH # 0.6 10*3/uL (1.3-4.4); MEAN CELL VOLUME 94.7 fl (81.0-99.0); MEAN CORPUSCULAR HGB 31.2 pg (27.0-31.0); MEAN PLATELET VOLUME 9.2 fl (9.6-12.3); MONO # 0.5 10*3/uL (0.1-1.0); MONO % 8.8 % (3.0-9.0); NEUT # 4.8 10*3/uL (2.3-7.9); NEUT % 79.3 % (47.0-73.0); NUCLEATED RED BLOOD CELL 0.1 10*3/uL (0.0-0.0); PLATELET COUNT AUTOMATED 171 10*3/uL (130-400); RED BLOOD COUNT 3.78 10*6/uL (4.10-5.10); RED CELL DISTRI WIDTH 14.9 % (0-14.5)
[2020-05-06 14:02] LABS: ALBUMIN 2.7 gm/dl (3.1-4.5); CREATININE 1.29 mg/dL (0.55-1.02); TOTAL PROTEIN 6.7 gm/dL (6.4-8.2)
[2020-05-06 14:10] LABS: ARTERIAL BLOOD GAS PH 7.478 (7.35-7.45)
[2020-05-06 15:04] LABS: ACT PARTIAL THROMBO TIME 30.4 SECONDS (20.0-32.1); INTERNATIONAL NORM RATIO 1.2 (2.0-3.5)
[2020-05-06 17:15] LABS: BILIRUBIN Negative (Negative); BLOOD 3+ (Negative); CLARITY Turbid (Clear); COLOR Dark Yellow (Yellow); GLUCOSE Negative (Negative); KETONE 1+ (Negative); LEUKO ESTERASE 3+ (Negative); NITRITE Negative (Negative); PH 7.5 (4.5-8.0)
[2020-05-06 17:25] LABS: BACTERIA 2+; WBC TNTC wbc/hpf (0-5)
[2020-05-06 19:26] LABS: ABG BASE EXCESS -0.7 mmol/L (-2.0-2.0); ARTERIAL BLOOD GAS PH 7.475 (7.35-7.45)
[2020-05-07] VITALS (7 sets, daily range): BP systolic 93–108; BP diastolic 46–56
[2020-05-07 05:45] LABS: ALBUMIN 2.4 gm/dl (3.1-4.5); BUN 35 mg/dl (7-24); CHLORIDE 105 mmol/L (98-107); CREATININE 1.03 mg/dL (0.55-1.02); LDH 420 U/L (84-246); POTASSIUM 4.3 mmol/L (3.5-5.1); SGOT/AST 51 IU/L (3-35); SGPT/ALT 26 U/L (12-78); SODIUM 136 mmol/L (136-145)
[2020-05-07 05:51] LABS: ALKALINE PHOSPHATASE 95 U/L (45-117); THYROID STIM HORMONE (HS) 0.925 uIU/ml (0.358-4.75)
[2020-05-07 06:11] LABS: BASO % 0.2 % (0.0-1.0); HEMATOCRIT 34.1 % (37.0-47.0); LYMPH # 0.6 10*3/uL (1.3-4.4); LYMPH % 11.4 % (27.0-41.0); MEAN CELL VOLUME 95.5 fl (81.0-99.0); MEAN CORPUSCULAR HGB 31.7 pg (27.0-31.0); MEAN CORPUSCULAR HGB CONC 33.1 g/dl (33.0-37.0); MEAN PLATELET VOLUME 9.8 fl (9.6-12.3); MONO # 0.3 10*3/uL (0.1-1.0); MONO % 5.6 % (3.0-9.0); NEUT # 4.2 10*3/uL (2.3-7.9); NEUT % 81.6 % (47.0-73.0); NUCLEATED RED BLOOD CELL 0.8 % (0.0-0.0); PLATELET COUNT AUTOMATED 144 10*3/uL (130-400); RED BLOOD COUNT 3.57 10*6/uL (4.10-5.10); RED CELL DISTRI WIDTH 14.7 % (0-14.5); WHITE BLOOD COUNT 5.2 10*3/uL (4.8-10.8)
[2020-05-07 08:47] LABS: ABG BASE EXCESS -0.7 mmol/L (-2.0-2.0); ARTERIAL BLOOD GAS PH 7.455 (7.35-7.45)
[2020-05-08] VITALS (7 sets, daily range): BP systolic 100–109; BP diastolic 41–67
[2020-05-08 05:32] LABS: ALBUMIN 2.4 gm/dl (3.1-4.5); CHLORIDE 104 mmol/L (98-107); SGOT/AST 43 IU/L (3-35); SGPT/ALT 28 U/L (12-78); SODIUM 136 mmol/L (136-145)
[2020-05-08 05:38] LABS: ALKALINE PHOSPHATASE 120 U/L (45-117); BUN 36 mg/dl (7-24); LDH 483 U/L (84-246)
[2020-05-08 06:30] LABS: HEMATOCRIT 33.3 % (37.0-47.0); MEAN CELL VOLUME 94.3 fl (81.0-99.0); MEAN CORPUSCULAR HGB 30.9 pg (27.0-31.0); MEAN CORPUSCULAR HGB CONC 32.7 g/dl (33.0-37.0); MEAN PLATELET VOLUME 9.8 fl (9.6-12.3); NUCLEATED RED BLOOD CELL 0.3 % (0.0-0.0); PLATELET COUNT AUTOMATED 152 10*3/uL (130-400); RED BLOOD COUNT 3.53 10*6/uL (4.10-5.10); RED CELL DISTRI WIDTH 14.8 % (0-14.5); WHITE BLOOD COUNT 6.7 10*3/uL (4.8-10.8)
[2020-05-08 07:12] LABS: ATYPICAL LYMPHS 2 % (0-0); BURR CELLS FEW; PLATELET SUFFICIENCY NORMAL (NORMAL); POLYCHROMASIA SLIGHT; TOTAL CELLS COUNTED 100 #CELLS
[2020-05-08 07:13] LABS: OVALOCYTES FEW; SCHISTOCYTES FEW
[2020-05-08 07:35] LABS: ABG BASE EXCESS -0.1 mmol/L (-2.0-2.0); ARTERIAL BLOOD GAS PH 7.467 (7.35-7.45)
[2020-05-08 16:08] LABS: ABG BASE EXCESS 1.2 mmol/L (-2.0-2.0); ARTERIAL BLOOD GAS PH 7.487 (7.35-7.45)
[2020-05-09] VITALS: BP 105/42
[2020-05-09 04:00] VITALS: BP 111/54
[2020-05-09 05:42] LABS: ALBUMIN 2.2 gm/dl (3.1-4.5); ALKALINE PHOSPHATASE 137 U/L (45-117); BUN 33 mg/dl (7-24); CHLORIDE 109 mmol/L (98-107); CREATININE 0.72 mg/dL (0.55-1.02); LDH 530 U/L (84-246); POTASSIUM 3.9 mmol/L (3.5-5.1); SGOT/AST 34 IU/L (3-35); SGPT/ALT 23 U/L (12-78); SODIUM 140 mmol/L (136-145); TOTAL PROTEIN 5.6 gm/dL (6.4-8.2)
[2020-05-09 06:01] LABS: HEMATOCRIT 32.7 % (37.0-47.0); MEAN CELL VOLUME 96.2 fl (81.0-99.0); MEAN CORPUSCULAR HGB 31.2 pg (27.0-31.0); MEAN CORPUSCULAR HGB CONC 32.4 g/dl (33.0-37.0); MEAN PLATELET VOLUME 10.1 fl (9.6-12.3); PLATELET COUNT AUTOMATED 144 10*3/uL (130-400); RED CELL DISTRI WIDTH 14.8 % (0-14.5); WHITE BLOOD COUNT 6.2 10*3/uL (4.8-10.8)
[2020-05-09 07:03] LABS: TOTAL CELLS COUNTED 100 #CELLS
[2020-05-09 07:04] LABS: PLATELET SUFFICIENCY NORMAL (NORMAL); POLYCHROMASIA SLIGHT
[2020-05-09 08:00] VITALS: BP 116/52
[2020-05-09 08:15] LABS: ARTERIAL BLOOD GAS PH 7.457 (7.35-7.45)
[2020-05-09 12:00] VITALS: BP 115/55
[2020-05-09 14:41] LABS: ABG BASE EXCESS 0.7 mmol/L (-2.0-2.0); ARTERIAL BLOOD GAS PH 7.45 (7.35-7.45)
[2020-05-09 16:00] VITALS: BP 108/64
[2020-05-09 20:00] VITALS: BP 121/55
[2020-05-09 21:02] LABS: ABG BASE EXCESS -1.4 mmol/L (-2.0-2.0); ARTERIAL BLOOD GAS PH 7.44 (7.35-7.45)
[2020-05-10] VITALS: BP 116/48
[2020-05-10 04:00] VITALS: BP 95/40
[2020-05-10 06:29] LABS: EOS % 0.1 % (1.0-4.0); HEMATOCRIT 33.8 % (37.0-47.0); LYMPH # 0.4 10*3/uL (1.3-4.4); LYMPH % 5.6 % (27.0-41.0); MEAN CELL VOLUME 94.9 fl (81.0-99.0); MEAN CORPUSCULAR HGB 30.9 pg (27.0-31.0); MEAN CORPUSCULAR HGB CONC 32.5 g/dl (33.0-37.0); MEAN PLATELET VOLUME 9.4 fl (9.6-12.3); MONO # 0.4 10*3/uL (0.1-1.0); MONO % 5.5 % (3.0-9.0); NEUT # 6.6 10*3/uL (2.3-7.9); NEUT % 87.7 % (47.0-73.0); PLATELET COUNT AUTOMATED 149 10*3/uL (130-400); RED BLOOD COUNT 3.56 10*6/uL (4.10-5.10); RED CELL DISTRI WIDTH 14.6 % (0-14.5); WHITE BLOOD COUNT 7.5 10*3/uL (4.8-10.8)
[2020-05-10 06:41] LABS: ALBUMIN 2.2 gm/dl (3.1-4.5); ALKALINE PHOSPHATASE 161 U/L (45-117); BUN 24 mg/dl (7-24); CHLORIDE 108 mmol/L (98-107); POTASSIUM 3.9 mmol/L (3.5-5.1); SGOT/AST 32 IU/L (3-35); SGPT/ALT 21 U/L (12-78); SODIUM 139 mmol/L (136-145); TOTAL PROTEIN 5.7 gm/dL (6.4-8.2)
[2020-05-10 07:56] LABS: ABG BASE EXCESS 1.1 mmol/L (-2.0-2.0); ARTERIAL BLOOD GAS PH 7.435 (7.35-7.45)
[2020-05-10 08:00] VITALS: BP 123/51
[2020-05-10 12:00] VITALS: BP 122/51
[2020-05-10 16:00] VITALS: BP 118/42
[2020-05-10 20:00] VITALS: BP 106/55
[2020-05-11] VITALS: BP 121/55
[2020-05-11 07:00] LABS: HEMATOCRIT 35.5 % (37.0-47.0); MEAN CELL VOLUME 95.4 fl (81.0-99.0); MEAN CORPUSCULAR HGB 31.2 pg (27.0-31.0); MEAN CORPUSCULAR HGB CONC 32.7 g/dl (33.0-37.0); MEAN PLATELET VOLUME 9.3 fl (9.6-12.3); PLATELET COUNT AUTOMATED 161 10*3/uL (130-400); RED BLOOD COUNT 3.72 10*6/uL (4.10-5.10); RED CELL DISTRI WIDTH 14.7 % (0-14.5); WHITE BLOOD COUNT 8.1 10*3/uL (4.8-10.8)
[2020-05-11 07:16] LABS: ALKALINE PHOSPHATASE 207 U/L (45-117); BUN 20 mg/dl (7-24); CHLORIDE 106 mmol/L (98-107); CREATININE 0.61 mg/dL (0.55-1.02); LDH 604 U/L (84-246); SGOT/AST 38 IU/L (3-35); SGPT/ALT 19 U/L (12-78); SODIUM 137 mmol/L (136-145); TOTAL PROTEIN 5.7 gm/dL (6.4-8.2)
[2020-05-11 07:30] LABS: TOTAL CELLS COUNTED 100 #CELLS
[2020-05-11 07:31] LABS: BURR CELLS FEW; OVALOCYTES FEW; PLATELET SUFFICIENCY NORMAL (NORMAL); POLYCHROMASIA SLIGHT; SCHISTOCYTES FEW
[2020-05-11 07:45] LABS: ABG BASE EXCESS 1.9 mmol/L (-2.0-2.0); ARTERIAL BLOOD GAS PH 7.444 (7.35-7.45)
[2020-05-11 08:22] VITALS: BP 110/56
[2020-05-11 12:00] VITALS: BP 104/76
[2020-05-11 16:00] VITALS: BP 124/48
[2020-05-11 20:00] VITALS: BP 117/51
[2020-05-12] VITALS (16 sets, daily range): BP systolic 79–148; BP diastolic 42–85
[2020-05-12 06:11] LABS: BUN 19 mg/dl (7-24); CHLORIDE 108 mmol/L (98-107); CREATININE 0.63 mg/dL (0.55-1.02); LDH 602 U/L (84-246); POTASSIUM 4.7 mmol/L (3.5-5.1); SGOT/AST 39 IU/L (3-35); SGPT/ALT 19 U/L (12-78); SODIUM 140 mmol/L (136-145); TOTAL PROTEIN 6.1 gm/dL (6.4-8.2)
[2020-05-12 06:12] LABS: ALKALINE PHOSPHATASE 219 U/L (45-117)
[2020-05-12 06:21] LABS: HEMATOCRIT 38.1 % (37.0-47.0); MEAN CELL VOLUME 95.5 fl (81.0-99.0); MEAN CORPUSCULAR HGB 30.8 pg (27.0-31.0); MEAN CORPUSCULAR HGB CONC 32.3 g/dl (33.0-37.0); PLATELET COUNT AUTOMATED 170 10*3/uL (130-400); RED BLOOD COUNT 3.99 10*6/uL (4.10-5.10); RED CELL DISTRI WIDTH 14.8 % (0-14.5); WHITE BLOOD COUNT 9.4 10*3/uL (4.8-10.8)
[2020-05-12 07:47] LABS: BURR CELLS FEW; OVALOCYTES FEW; PLATELET SUFFICIENCY NORMAL (NORMAL); POLYCHROMASIA SLIGHT; TOTAL CELLS COUNTED 100 #CELLS
[2020-05-12 18:00] LABS: HEMATOCRIT 42.8 % (37.0-47.0); MEAN CORPUSCULAR HGB 30.7 pg (27.0-31.0); MEAN CORPUSCULAR HGB CONC 30.4 g/dl (33.0-37.0); MEAN PLATELET VOLUME 9.1 fl (9.6-12.3); NUCLEATED RED BLOOD CELL 0.2 % (0.0-0.0); RED BLOOD COUNT 4.23 10*6/uL (4.10-5.10); RED CELL DISTRI WIDTH 15.4 % (0-14.5); WHITE BLOOD COUNT 22.2 10*3/uL (4.8-10.8)
[2020-05-12 18:00] LABS: ARTERIAL BLOOD GAS PH 7.053 (7.35-7.45)
[2020-05-12 18:01] LABS: ABG BASE EXCESS -8.2 mmol/L (-2.0-2.0)
[2020-05-12 18:05] LABS: MEAN CELL VOLUME 101.2 fl (81.0-99.0); PLATELET COUNT AUTOMATED 336 10*3/uL (130-400)
[2020-05-12 18:12] LABS: ALBUMIN 2.2 gm/dl (3.1-4.5); ALKALINE PHOSPHATASE 244 U/L (45-117); BUN 22 mg/dl (7-24); CHLORIDE 107 mmol/L (98-107); CREATININE 0.94 mg/dL (0.55-1.02); POTASSIUM 5.6 mmol/L (3.5-5.1); SGOT/AST 39 IU/L (3-35); SGPT/ALT 20 U/L (12-78); SODIUM 139 mmol/L (136-145); TOTAL PROTEIN 6.9 gm/dL (6.4-8.2)
[2020-05-12 18:22] LABS: TOTAL CELLS COUNTED 100 #CELLS
[2020-05-12 18:23] LABS: BURR CELLS FEW; PLATELET SUFFICIENCY NORMAL (NORMAL)
[2020-05-12 18:28] LABS: ACT PARTIAL THROMBO TIME 37.9 SECONDS (20.0-32.1); INTERNATIONAL NORM RATIO 1.4 (2.0-3.5)
[2020-05-12 22:17] LABS: ARTERIAL BLOOD GAS PH 7.109 (7.35-7.45)
[2020-05-12 22:18] LABS: ABG BASE EXCESS -7.2 mmol/L (-2.0-2.0)
[2020-05-12 22:49] LABS: CREATININE 1.08 mg/dL (0.55-1.02); POTASSIUM 4.9 mmol/L (3.5-5.1)
[2020-05-13] VITALS (92 sets, daily range): BP systolic 90–145; BP diastolic 47–71
[2020-05-13 05:56] LABS: ALBUMIN 1.9 gm/dl (3.1-4.5); ALKALINE PHOSPHATASE 191 U/L (45-117); BUN 29 mg/dl (7-24); CHLORIDE 109 mmol/L (98-107); CREATININE 0.84 mg/dL (0.55-1.02); LDH 515 U/L (84-246); POTASSIUM 4.7 mmol/L (3.5-5.1); SGOT/AST 25 IU/L (3-35); SGPT/ALT 19 U/L (12-78); SODIUM 142 mmol/L (136-145)
[2020-05-13 06:09] LABS: HEMATOCRIT 39.1 % (37.0-47.0); MEAN CELL VOLUME 100.8 fl (81.0-99.0); MEAN CORPUSCULAR HGB 31.4 pg (27.0-31.0); MEAN CORPUSCULAR HGB CONC 31.2 g/dl (33.0-37.0); MEAN PLATELET VOLUME 9.4 fl (9.6-12.3); NUCLEATED RED BLOOD CELL 0.1 % (0.0-0.0); PLATELET COUNT AUTOMATED 271 10*3/uL (130-400); RED BLOOD COUNT 3.88 10*6/uL (4.10-5.10); RED CELL DISTRI WIDTH 15.4 % (0-14.5); WHITE BLOOD COUNT 23.5 10*3/uL (4.8-10.8)
[2020-05-13 07:31] LABS: BURR CELLS FEW; PLATELET SUFFICIENCY NORMAL (NORMAL); TOTAL CELLS COUNTED 100 #CELLS
[2020-05-13 08:06] LABS: ARTERIAL BLOOD GAS PH 7.298 (7.35-7.45)
[2020-05-13 15:58] LABS: ABG BASE EXCESS 1.4 mmol/L (-2.0-2.0); ARTERIAL BLOOD GAS PH 7.342 (7.35-7.45)
[2020-05-13 23:30] LABS: ABG BASE EXCESS 1.9 mmol/L (-2.0-2.0); ARTERIAL BLOOD GAS PH 7.36 (7.35-7.45)
[2020-05-14] VITALS (29 sets, daily range): BP systolic 99–134; BP diastolic 42–65
[2020-05-14 05:33] LABS: ALBUMIN 1.6 gm/dl (3.1-4.5); ALKALINE PHOSPHATASE 104 U/L (45-117); BUN 30 mg/dl (7-24); CHLORIDE 112 mmol/L (98-107); CREATININE 0.67 mg/dL (0.55-1.02); LDH 349 U/L (84-246); POTASSIUM 4.3 mmol/L (3.5-5.1); SGOT/AST 22 IU/L (3-35); SGPT/ALT 17 U/L (12-78); SODIUM 148 mmol/L (136-145); TOTAL PROTEIN 5.2 gm/dL (6.4-8.2)
[2020-05-14 06:43] LABS: HEMATOCRIT 35.9 % (37.0-47.0); MEAN CELL VOLUME 99.7 fl (81.0-99.0); MEAN CORPUSCULAR HGB 30.6 pg (27.0-31.0); MEAN CORPUSCULAR HGB CONC 30.6 g/dl (33.0-37.0); MEAN PLATELET VOLUME 9.7 fl (9.6-12.3); RED CELL DISTRI WIDTH 15.1 % (0-14.5); WHITE BLOOD COUNT 8.5 10*3/uL (4.8-10.8)
[2020-05-14 06:45] LABS: PLATELET COUNT AUTOMATED 162 10*3/uL (130-400)
[2020-05-14 07:08] LABS: TOTAL CELLS COUNTED 100 #CELLS
[2020-05-14 07:09] LABS: BURR CELLS MODERATE; PLATELET SUFFICIENCY NORMAL (NORMAL)
[2020-05-14 08:38] LABS: ABG BASE EXCESS 3.5 mmol/L (-2.0-2.0); ARTERIAL BLOOD GAS PH 7.39 (7.35-7.45)
[2020-05-14 15:37] LABS: ABG BASE EXCESS 3.8 mmol/L (-2.0-2.0); ARTERIAL BLOOD GAS PH 7.464 (7.35-7.45)
[2020-05-14 23:47] LABS: ABG BASE EXCESS 3.3 mmol/L (-2.0-2.0); ARTERIAL BLOOD GAS PH 7.355 (7.35-7.45)
[2020-05-15] VITALS (12 sets, daily range): BP systolic 101–171; BP diastolic 48–77
[2020-05-15 06:10] LABS: ALBUMIN 1.5 gm/dl (3.1-4.5); ALKALINE PHOSPHATASE 98 U/L (45-117); BUN 36 mg/dl (7-24); CHLORIDE 113 mmol/L (98-107); CPK 43 U/L (26-192); CREATININE 0.59 mg/dL (0.55-1.02); LDH 289 U/L (84-246); POTASSIUM 4.3 mmol/L (3.5-5.1); SGOT/AST 19 IU/L (3-35); SGPT/ALT 15 U/L (12-78); SODIUM 147 mmol/L (136-145); TOTAL PROTEIN 5.1 gm/dL (6.4-8.2)
[2020-05-15 06:14] LABS: EOS % 0.2 % (1.0-4.0); HEMATOCRIT 34.8 % (37.0-47.0); LYMPH # 0.3 10*3/uL (1.3-4.4); LYMPH % 4.8 % (27.0-41.0); MEAN CELL VOLUME 101.2 fl (81.0-99.0); MEAN CORPUSCULAR HGB 31.7 pg (27.0-31.0); MEAN CORPUSCULAR HGB CONC 31.3 g/dl (33.0-37.0); MEAN PLATELET VOLUME 9.7 fl (9.6-12.3); MONO # 0.3 10*3/uL (0.1-1.0); MONO % 5.3 % (3.0-9.0); NEUT # 5.2 10*3/uL (2.3-7.9); PLATELET COUNT AUTOMATED 132 10*3/uL (130-400); RED BLOOD COUNT 3.44 10*6/uL (4.10-5.10); RED CELL DISTRI WIDTH 15.4 % (0-14.5); WHITE BLOOD COUNT 5.9 10*3/uL (4.8-10.8)
[2020-05-15 07:46] LABS: ABG BASE EXCESS 4.4 mmol/L (-2.0-2.0); ARTERIAL BLOOD GAS PH 7.389 (7.35-7.45)
[2020-05-15 15:25] LABS: ABG BASE EXCESS 3.3 mmol/L (-2.0-2.0); ARTERIAL BLOOD GAS PH 7.377 (7.35-7.45)
[2020-05-16] VITALS (12 sets, daily range): BP systolic 116–174; BP diastolic 54–86
[2020-05-16 01:34] LABS: ARTERIAL BLOOD GAS PH 7.439 (7.35-7.45)
[2020-05-16 06:02] LABS: ALBUMIN 1.9 gm/dl (3.1-4.5); ALKALINE PHOSPHATASE 85 U/L (45-117); BUN 36 mg/dl (7-24); CHLORIDE 113 mmol/L (98-107); CREATININE 0.58 mg/dL (0.55-1.02); SGOT/AST 19 IU/L (3-35); SGPT/ALT 18 U/L (12-78); SODIUM 149 mmol/L (136-145); TOTAL PROTEIN 5.3 gm/dL (6.4-8.2)
[2020-05-16 06:37] LABS: BASO % 0.2 % (0.0-1.0); EOS % 0.6 % (1.0-4.0); HEMATOCRIT 34.8 % (37.0-47.0); LYMPH # 0.3 10*3/uL (1.3-4.4); LYMPH % 6.2 % (27.0-41.0); MEAN CELL VOLUME 100.9 fl (81.0-99.0); MEAN CORPUSCULAR HGB 30.7 pg (27.0-31.0); MEAN CORPUSCULAR HGB CONC 30.5 g/dl (33.0-37.0); MEAN PLATELET VOLUME 9.6 fl (9.6-12.3); MONO # 0.3 10*3/uL (0.1-1.0); MONO % 6.2 % (3.0-9.0); NEUT # 4.6 10*3/uL (2.3-7.9); NEUT % 85.1 % (47.0-73.0); PLATELET COUNT AUTOMATED 144 10*3/uL (130-400); RED BLOOD COUNT 3.45 10*6/uL (4.10-5.10); RED CELL DISTRI WIDTH 15.1 % (0-14.5); WHITE BLOOD COUNT 5.3 10*3/uL (4.8-10.8)
[2020-05-16 08:29] LABS: ABG BASE EXCESS 7.2 mmol/L (-2.0-2.0); ARTERIAL BLOOD GAS PH 7.435 (7.35-7.45)
[2020-05-16 16:50] LABS: ABG BASE EXCESS 7.5 mmol/L (-2.0-2.0); ARTERIAL BLOOD GAS PH 7.435 (7.35-7.45)
[2020-05-17] VITALS (12 sets, daily range): BP systolic 109–146; BP diastolic 53–74
[2020-05-17 06:05] LABS: ALBUMIN 2.1 gm/dl (3.1-4.5); ALKALINE PHOSPHATASE 87 U/L (45-117); BUN 37 mg/dl (7-24); CHLORIDE 114 mmol/L (98-107); CREATININE 0.57 mg/dL (0.55-1.02); LDH 256 U/L (84-246); POTASSIUM 4.2 mmol/L (3.5-5.1); SGOT/AST 27 IU/L (3-35); SGPT/ALT 19 U/L (12-78); SODIUM 149 mmol/L (136-145); TOTAL PROTEIN 5.3 gm/dL (6.4-8.2)
[2020-05-17 06:21] LABS: BASO % 0.2 % (0.0-1.0); EOS # 0.1 10*3/uL (0.0-0.4); EOS % 1.2 % (1.0-4.0); HEMATOCRIT 32.7 % (37.0-47.0); LYMPH # 0.3 10*3/uL (1.3-4.4); LYMPH % 5.3 % (27.0-41.0); MEAN CELL VOLUME 101.2 fl (81.0-99.0); MEAN CORPUSCULAR HGB 30.3 pg (27.0-31.0); MEAN PLATELET VOLUME 9.6 fl (9.6-12.3); MONO # 0.5 10*3/uL (0.1-1.0); MONO % 7.3 % (3.0-9.0); NEUT # 5.4 10*3/uL (2.3-7.9); PLATELET COUNT AUTOMATED 131 10*3/uL (130-400); RED BLOOD COUNT 3.23 10*6/uL (4.10-5.10); RED CELL DISTRI WIDTH 15.4 % (0-14.5); WHITE BLOOD COUNT 6.5 10*3/uL (4.8-10.8)
[2020-05-17 08:06] LABS: ABG BASE EXCESS 9.4 mmol/L (-2.0-2.0); ARTERIAL BLOOD GAS PH 7.437 (7.35-7.45)
[2020-05-18] VITALS (11 sets, daily range): BP systolic 94–137; BP diastolic 52–74
[2020-05-18 06:05] LABS: ALBUMIN 2.6 gm/dl (3.1-4.5); ALKALINE PHOSPHATASE 107 U/L (45-117); BUN 35 mg/dl (7-24); CHLORIDE 109 mmol/L (98-107); CREATININE 0.67 mg/dL (0.55-1.02); LDH 258 U/L (84-246); POTASSIUM 3.4 mmol/L (3.5-5.1); SGOT/AST 33 IU/L (3-35); SGPT/ALT 24 U/L (12-78); SODIUM 147 mmol/L (136-145); TOTAL PROTEIN 5.5 gm/dL (6.4-8.2)
[2020-05-18 06:09] LABS: HEMATOCRIT 32.5 % (37.0-47.0); MEAN CELL VOLUME 101.9 fl (81.0-99.0); MEAN CORPUSCULAR HGB 30.4 pg (27.0-31.0); MEAN CORPUSCULAR HGB CONC 29.8 g/dl (33.0-37.0); MEAN PLATELET VOLUME 9.6 fl (9.6-12.3); PLATELET COUNT AUTOMATED 98 10*3/uL (130-400); RED BLOOD COUNT 3.19 10*6/uL (4.10-5.10); RED CELL DISTRI WIDTH 15.5 % (0-14.5); WHITE BLOOD COUNT 6.5 10*3/uL (4.8-10.8)
[2020-05-18 06:43] LABS: OVALOCYTES FEW; PLATELET SUFFICIENCY LOW (NORMAL); POLYCHROMASIA SLIGHT; TOTAL CELLS COUNTED 100 #CELLS
[2020-05-18 08:27] LABS: ABG BASE EXCESS 11.3 mmol/L (-2.0-2.0); ARTERIAL BLOOD GAS PH 7.429 (7.35-7.45)
[2020-05-18 09:06] LABS: INTERNATIONAL NORM RATIO 1.1 (2.0-3.5)
[2020-05-18 12:57] LABS: BILIRUBIN Negative (Negative); BLOOD Trace-Lysed (Negative); CLARITY Cloudy (Clear); COLOR Dark Yellow (Yellow); GLUCOSE Negative (Negative); KETONE Negative (Negative); LEUKO ESTERASE Trace (Negative); NITRITE Negative (Negative); PH 5.5 (4.5-8.0); SPECIFIC GRAVITY >= 1.030 (1.001-1.030)
[2020-05-18 13:24] LABS: BACTERIA 2+; EPITHELIAL CELLS 21-30; RBC 21-30 rbc/hpf (0-2); WBC 21-30 wbc/hpf (0-5)
[2020-05-18 14:38] LABS: EOS # 0.3 10*3/uL (0.0-0.4); EOS % 3.1 % (1.0-4.0); HEMATOCRIT 32.8 % (37.0-47.0); LYMPH # 0.7 10*3/uL (1.3-4.4); LYMPH % 8.2 % (27.0-41.0); MEAN CELL VOLUME 103.5 fl (81.0-99.0); MEAN CORPUSCULAR HGB 30.6 pg (27.0-31.0); MEAN CORPUSCULAR HGB CONC 29.6 g/dl (33.0-37.0); MEAN PLATELET VOLUME 9.7 fl (9.6-12.3); MONO # 0.5 10*3/uL (0.1-1.0); MONO % 5.7 % (3.0-9.0); NEUT # 6.4 10*3/uL (2.3-7.9); NEUT % 80.5 % (47.0-73.0); PLATELET COUNT AUTOMATED 92 10*3/uL (130-400); RED BLOOD COUNT 3.17 10*6/uL (4.10-5.10); RED CELL DISTRI WIDTH 15.7 % (0-14.5)
[2020-05-18 15:13] LABS: ABG BASE EXCESS 9.8 mmol/L (-2.0-2.0); ARTERIAL BLOOD GAS PH 7.426 (7.35-7.45)
[2020-05-19] VITALS (11 sets, daily range): BP systolic 97–148; BP diastolic 55–68
[2020-05-19 06:27] LABS: BASO % 0.2 % (0.0-1.0); EOS # 0.3 10*3/uL (0.0-0.4); EOS % 4.5 % (1.0-4.0); HEMATOCRIT 29.1 % (37.0-47.0); LYMPH # 0.5 10*3/uL (1.3-4.4); LYMPH % 8.4 % (27.0-41.0); MEAN CELL VOLUME 103.9 fl (81.0-99.0); MEAN CORPUSCULAR HGB 31.4 pg (27.0-31.0); MEAN CORPUSCULAR HGB CONC 30.2 g/dl (33.0-37.0); MEAN PLATELET VOLUME 10.3 fl (9.6-12.3); MONO # 0.3 10*3/uL (0.1-1.0); NEUT # 4.9 10*3/uL (2.3-7.9); NEUT % 79.3 % (47.0-73.0); PLATELET COUNT AUTOMATED 80 10*3/uL (130-400); RED CELL DISTRI WIDTH 15.8 % (0-14.5); WHITE BLOOD COUNT 6.2 10*3/uL (4.8-10.8)
[2020-05-19 06:34] LABS: ALKALINE PHOSPHATASE 98 U/L (45-117); BUN 35 mg/dl (7-24); CHLORIDE 110 mmol/L (98-107); CREATININE 0.64 mg/dL (0.55-1.02); LDH 289 U/L (84-246); POTASSIUM 3.9 mmol/L (3.5-5.1); SGOT/AST 29 IU/L (3-35); SGPT/ALT 19 U/L (12-78); SODIUM 147 mmol/L (136-145)
[2020-05-19 08:04] LABS: ABG BASE EXCESS 8.8 mmol/L (-2.0-2.0); ARTERIAL BLOOD GAS PH 7.44 (7.35-7.45)
[2020-05-19 14:52] LABS: ARTERIAL BLOOD GAS PH 7.443 (7.35-7.45)
[2020-05-19 15:34] LABS: BASO % 0.1 % (0.0-1.0); EOS # 0.3 10*3/uL (0.0-0.4); EOS % 3.3 % (1.0-4.0); HEMATOCRIT 31.3 % (37.0-47.0); LYMPH # 0.6 10*3/uL (1.3-4.4); LYMPH % 7.4 % (27.0-41.0); MEAN CORPUSCULAR HGB 30.6 pg (27.0-31.0); MEAN CORPUSCULAR HGB CONC 30.4 g/dl (33.0-37.0); MEAN PLATELET VOLUME 9.9 fl (9.6-12.3); MONO # 0.3 10*3/uL (0.1-1.0); MONO % 3.8 % (3.0-9.0); NEUT # 6.4 10*3/uL (2.3-7.9); NEUT % 83.2 % (47.0-73.0); PLATELET COUNT AUTOMATED 76 10*3/uL (130-400); RED CELL DISTRI WIDTH 15.6 % (0-14.5); WHITE BLOOD COUNT 7.7 10*3/uL (4.8-10.8)
[2020-05-20] VITALS (7 sets, daily range): BP systolic 116–147; BP diastolic 48–67
[2020-05-20 06:23] LABS: BASO % 0.1 % (0.0-1.0); EOS # 0.3 10*3/uL (0.0-0.4); EOS % 3.4 % (1.0-4.0); HEMATOCRIT 30.5 % (37.0-47.0); LYMPH # 0.6 10*3/uL (1.3-4.4); LYMPH % 7.4 % (27.0-41.0); MEAN CORPUSCULAR HGB 30.7 pg (27.0-31.0); MEAN CORPUSCULAR HGB CONC 29.8 g/dl (33.0-37.0); MEAN PLATELET VOLUME 10.7 fl (9.6-12.3); MONO # 0.5 10*3/uL (0.1-1.0); MONO % 5.3 % (3.0-9.0); NEUT # 6.9 10*3/uL (2.3-7.9); NEUT % 81.7 % (47.0-73.0); PLATELET COUNT AUTOMATED 84 10*3/uL (130-400); RED BLOOD COUNT 2.96 10*6/uL (4.10-5.10); RED CELL DISTRI WIDTH 15.8 % (0-14.5); WHITE BLOOD COUNT 8.5 10*3/uL (4.8-10.8)
[2020-05-20 06:43] LABS: ALBUMIN 2.1 gm/dl (3.1-4.5); ALKALINE PHOSPHATASE 157 U/L (45-117); BUN 26 mg/dl (7-24); CHLORIDE 107 mmol/L (98-107); CREATININE 0.57 mg/dL (0.55-1.02); LDH 411 U/L (84-246); SGOT/AST 34 IU/L (3-35); SGPT/ALT 21 U/L (12-78); SODIUM 144 mmol/L (136-145); TOTAL PROTEIN 5.4 gm/dL (6.4-8.2); TRIGLYCERIDES 52 mg/dl (<150)
[2020-05-20 09:01] LABS: ABG BASE EXCESS 9.6 mmol/L (-2.0-2.0); ARTERIAL BLOOD GAS PH 7.434 (7.35-7.45)
[2020-05-21] VITALS: BP 127/61
[2020-05-21 04:00] VITALS: BP 127/56
[2020-05-21 05:55] LABS: ALKALINE PHOSPHATASE 127 U/L (45-117); BUN 28 mg/dl (7-24); CHLORIDE 106 mmol/L (98-107); CREATININE 0.43 mg/dL (0.55-1.02); POTASSIUM 4.5 mmol/L (3.5-5.1); SGOT/AST 32 IU/L (3-35); SGPT/ALT 22 U/L (12-78); SODIUM 142 mmol/L (136-145); TOTAL PROTEIN 5.4 gm/dL (6.4-8.2); TRIGLYCERIDES 44 mg/dl (<150)
[2020-05-21 06:14] LABS: BASO % 0.1 % (0.0-1.0); EOS # 0.4 10*3/uL (0.0-0.4); HEMATOCRIT 30.7 % (37.0-47.0); LYMPH # 0.6 10*3/uL (1.3-4.4); LYMPH % 6.3 % (27.0-41.0); MEAN CELL VOLUME 103.4 fl (81.0-99.0); MEAN CORPUSCULAR HGB 31.3 pg (27.0-31.0); MEAN CORPUSCULAR HGB CONC 30.3 g/dl (33.0-37.0); MEAN PLATELET VOLUME 10.5 fl (9.6-12.3); MONO # 0.6 10*3/uL (0.1-1.0); MONO % 5.8 % (3.0-9.0); NEUT # 8.4 10*3/uL (2.3-7.9); NEUT % 82.1 % (47.0-73.0); PLATELET COUNT AUTOMATED 93 10*3/uL (130-400); RED BLOOD COUNT 2.97 10*6/uL (4.10-5.10); RED CELL DISTRI WIDTH 15.9 % (0-14.5); WHITE BLOOD COUNT 10.2 10*3/uL (4.8-10.8)
[2020-05-21 07:47] LABS: ABG BASE EXCESS 11.1 mmol/L (-2.0-2.0); ARTERIAL BLOOD GAS PH 7.364 (7.35-7.45)
[2020-05-21 08:00] VITALS: BP 122/53
[2020-05-21 12:00] VITALS: BP 134/56
[2020-05-21 16:00] VITALS: BP 114/47
[2020-05-21 18:08] LABS: HLA CLASS 1 ANTIBODY Negative (Negative); IIb/IIIa ANTIBODY Negative (Negative); Ia/IIa ANTIBODY Negative (Negative); Ib/IX ANTIBODY Negative (Negative)
[2020-05-21 20:00] VITALS: BP 123/52
[2020-05-22] VITALS: BP 122/52
[2020-05-22 04:00] VITALS: BP 112/49
[2020-05-22 06:23] LABS: ALBUMIN 1.7 gm/dl (3.1-4.5); ALKALINE PHOSPHATASE 129 U/L (45-117); BUN 29 mg/dl (7-24); CHLORIDE 106 mmol/L (98-107); CREATININE 0.39 mg/dL (0.55-1.02); POTASSIUM 4.5 mmol/L (3.5-5.1); SGOT/AST 35 IU/L (3-35); SGPT/ALT 25 U/L (12-78); SODIUM 143 mmol/L (136-145)
[2020-05-22 06:28] LABS: BASO % 0.1 % (0.0-1.0); EOS # 0.7 10*3/uL (0.0-0.4); EOS % 7.3 % (1.0-4.0); HEMATOCRIT 29.5 % (37.0-47.0); LYMPH # 0.5 10*3/uL (1.3-4.4); LYMPH % 5.1 % (27.0-41.0); MEAN CELL VOLUME 103.9 fl (81.0-99.0); MEAN CORPUSCULAR HGB 30.6 pg (27.0-31.0); MEAN CORPUSCULAR HGB CONC 29.5 g/dl (33.0-37.0); MEAN PLATELET VOLUME 10.7 fl (9.6-12.3); MONO # 0.6 10*3/uL (0.1-1.0); MONO % 5.8 % (3.0-9.0); NEUT # 7.6 10*3/uL (2.3-7.9); NEUT % 80.7 % (47.0-73.0); PLATELET COUNT AUTOMATED 91 10*3/uL (130-400); RED BLOOD COUNT 2.84 10*6/uL (4.10-5.10); RED CELL DISTRI WIDTH 15.9 % (0-14.5); WHITE BLOOD COUNT 9.4 10*3/uL (4.8-10.8)
[2020-05-22 07:29] LABS: ABG BASE EXCESS 10.3 mmol/L (-2.0-2.0); ARTERIAL BLOOD GAS PH 7.365 (7.35-7.45)
[2020-05-22 08:00] VITALS: BP 133/59
[2020-05-22 12:00] VITALS: BP 148/70
== END 2020-05-22 16:00 | disposition hospice, home (50) | DRG 870 ==
LOC: ED 13:22 → ICCU 14:17 → EDHOLD 14:17 → 4E 14:17 → EDHOLD 14:46 → ICCU 05-08 09:50 → 4E 05-10 13:34 → ICCU 05-12 14:19
PROVIDERS: Internal Medicine; Internal Medicine Critical Care Medicine; Student in an Organized Health Care Education/Training Program; ADMIT Family Medicine; ATTEND Family Medicine
PROC: 5A09557 Assistance with Respiratory Ventilation, Greater than 96 Consecutive Hours, Continuous Positive Airway Pressure (ICD-10-PCS; 2020-05-06)
PROC: 03HC33Z Insertion of Infusion Device into Left Radial Artery, Percutaneous Approach (ICD-10-PCS; 2020-05-07)
PROC: B54NZZA Ultrasonography of Left Upper Extremity Veins, Guidance (ICD-10-PCS; 2020-05-07)
PROC: XW033E5 Introduction of Remdesivir Anti-infective into Peripheral Vein, Percutaneous Approach, New Technology Group 5 (ICD-10-PCS; 2020-05-09)
PROC: 5A1955Z Respiratory Ventilation, Greater than 96 Consecutive Hours (ICD-10-PCS; principal; 2020-05-12)
PROC: 0BH17EZ Insertion of Endotracheal Airway into Trachea, Via Natural or Artificial Opening (ICD-10-PCS; 2020-05-12)
PROC: 03HC33Z Insertion of Infusion Device into Left Radial Artery, Percutaneous Approach (ICD-10-PCS; 2020-05-12)
PROC: B54NZZA Ultrasonography of Left Upper Extremity Veins, Guidance (ICD-10-PCS; 2020-05-12)
PROC: 02HV33Z Insertion of Infusion Device into Superior Vena Cava, Percutaneous Approach (ICD-10-PCS; 2020-05-12)
PROC: B548ZZA Ultrasonography of Superior Vena Cava, Guidance (ICD-10-PCS; 2020-05-12)
DX: A41.9 Sepsis, unspecified organism (principal); N17.0 Acute kidney failure with tubular necrosis; I21.4 Non-ST elevation (NSTEMI) myocardial infarction; E43 Unspecified severe protein-calorie malnutrition; J12.82 Pneumonia due to coronavirus disease 2019; U07.1 COVID-19; J80 Acute respiratory distress syndrome; N39.0 Urinary tract infection, site not specified; E87.1 Hypo-osmolality and hyponatremia; I50.32 Chronic diastolic (congestive) heart failure; D68.59 Other primary thrombophilia; E87.0 Hyperosmolality and hypernatremia; Z79.899 Other long term (current) drug therapy; I95.9 Hypotension, unspecified; D64.9 Anemia, unspecified; Z66 Do not resuscitate; Z51.5 Encounter for palliative care; E66.01 Morbid (severe) obesity due to excess calories; B96.4 Proteus (mirabilis) (morganii) as the cause of diseases classified elsewhere; E87.6 Hypokalemia; E83.41 Hypermagnesemia; K21.9 Gastro-esophageal reflux disease without esophagitis; K74.60 Unspecified cirrhosis of liver; I35.0 Nonrheumatic aortic (valve) stenosis; R74.01 Elevation of levels of liver transaminase levels; D69.6 Thrombocytopenia, unspecified; E83.39 Other disorders of phosphorus metabolism; R73.9 Hyperglycemia, unspecified; Z68.38 Body mass index [BMI] 38.0-38.9, adult; Z90.710 Acquired absence of both cervix and uterus; Z82.49 Family history of ischemic heart disease and other diseases of the circulatory system; Z82.5 Family history of asthma and other chronic lower respiratory diseases

== ENCOUNTER 2020-05-22 16:29 | Inpatient (IN) | payer OTHER, MEDICAID ==
[2020-05-22 16:30] VITALS: BP 113/53
== END 2020-05-22 18:59 | disposition expired | DRG 177 ==
LOC: ICCU 16:29
PROVIDERS: ADMIT Internal Medicine; ATTEND Internal Medicine
PROC: 03HY33Z Insertion of Infusion Device into Upper Artery, Percutaneous Approach (ICD-10-PCS; principal; 2020-05-22)
DX: U07.1 COVID-19 (principal); J96.01 Acute respiratory failure with hypoxia; N17.0 Acute kidney failure with tubular necrosis; I21.4 Non-ST elevation (NSTEMI) myocardial infarction; E43 Unspecified severe protein-calorie malnutrition; J12.82 Pneumonia due to coronavirus disease 2019; E87.1 Hypo-osmolality and hyponatremia; I50.32 Chronic diastolic (congestive) heart failure; Z66 Do not resuscitate; D64.9 Anemia, unspecified; Z51.5 Encounter for palliative care; E83.41 Hypermagnesemia; R74.01 Elevation of levels of liver transaminase levels; R73.9 Hyperglycemia, unspecified; I95.9 Hypotension, unspecified; K21.9 Gastro-esophageal reflux disease without esophagitis; K57.90 Diverticulosis of intestine, part unspecified, without perforation or abscess without bleeding; Z90.710 Acquired absence of both cervix and uterus; Z82.49 Family history of ischemic heart disease and other diseases of the circulatory system; Z82.5 Family history of asthma and other chronic lower respiratory diseases; Z79.899 Other long term (current) drug therapy; Z68.38 Body mass index [BMI] 38.0-38.9, adult